=== PATIENT | female | born 1935 | race Caucasian/White ===

== ENCOUNTER 2016-10-12 18:08 | Emergency (ER) | payer MEDICARE ==
[2016-10-12 19:50] LABS: Urine Bacteria 1+ (Absent); Urine Bilirubin Negative (Negative); Urine Glucose Negative (Negative); Urine Nitrite Positive (Negative)
[2016-10-12 19:54] LABS: Hematocrit 37 % (35-47); Hemoglobin 12.1 g/dl (12.0-16.0); Mean Corpuscular HGB Conc 33 g/dl (31-36); Mean Corpuscular Hemoglobin 31 pg (27-31); Mean Corpuscular Volume 93 fL (80-97); Mean Platelet Volume 9 um3 (7.4-10.4); Red Blood Count 3.91 10^6/ul (4.0-5.4); Red Cell Distribution Width 14 % (10.5-15); White Blood Count 9.9 10^3/ul (3.5-10.8)
[2016-10-12 20:09] LABS: ALT 20 U/L (7-52); Albumin 3.8 g/dL (3.2-5.2); Alkaline Phosphatase 93 U/L (34-104); BUN/Creatinine Ratio 27.6 (8-20); Blood Urea Nitrogen 27 mg/dL (6-24); CO2 Carbon Dioxide 25 mmol/L (22-32); Calcium 9.9 mg/dL (8.6-10.3); Chloride 104 mmol/L (101-111); EGFR African American 70.4 (>60); EGFR Non-African American 54.7 (>60); Globulin 3.9 g/dL (2-4); Glucose 91 mg/dL (70-100); Sodium 137 mmol/L (133-145); Total Protein 7.7 g/dL (6.4-8.9)
[2016-10-12] MEDS ORDERED: Iodixanol* (CONTRAST) 320 MG/ML 100 ML SDV IV ONE (20:15)
--- NOTE | 2016-10-12 20:55 | RAD ---
INDICATION: Syncope. COMPARISON: Comparison is made with a prior CT of the brain from April 30, 2013. TECHNIQUE: Contiguous axial sections of the brain were obtained from the skull base to the vertex without contrast. FINDINGS: The ventricles, cisterns and sulci are enlarged consistent with diffuse atrophy. There are small areas of decreased density in the subcortical and periventricular white matter suggestive of mild chronic small vessel ischemic changes. There is no evidence for hemorrhage. No significant focal osseous abnormality is seen. The visualized portion of the paranasal sinuses and mastoid air cells appear clear. IMPRESSION: NO EVIDENCE FOR GROSS ACUTE INFARCT, MASS EFFECT OR HEMORRHAGE.
--- NOTE | 2016-10-12 21:08 | ED ---
Adonis Conte Matthew, scribed for Brennan White MD on 10/12/16 at 1928 . Syncope/Near Syncope - HPI Summary HPI Summary: A 81 y/o female presents to the ED after syncopating this afternoon. The patient was in [employer], when she reached up for an item then felt a pain in the back of her neck and became dizzy. The patient attempt to find a bench, but had an episode of near syncope. She refused the ambulance at that time, because she was feeling better. She had missed her usual lunch, so she went home and had lunch; however, she began to feel weak and unsteady, which prompted her to present to the ED. Associated symptoms include LOC, dizziness, weakness, and unsteadiness. Per the daughter, the patient seems slower to respond than normal and she has been experiencing tingling/numbness around the lips. She denies any injures. She has also had an episode of syncope in 2012, while walking up a long flight of stairs. She also has a Hx of TIA. She takes a baby aspirin daily. - History Of Current Complaint Chief Complaint: EDSyncope Hx Obtained From: Patient Onset/Duration: Sudden Onset, Lasting Minutes, Resolved Timing: Minutes Context: Witnessed, Loss Of Consciousness Activity At Onset: Other - Standing Associated Head Trauma: No Aggravating Factor(s): Other - Reaching Up Alleviating Factor(s): Spontaneous Resolution Associated Signs And Symptoms: Dizzy, Weakness, Other - unsteady - Allergies/Home Medications Allergies/Adverse Reactions: Allergies Allergy/AdvReac Type Severity Reaction Status Date / Time NSAIDs Allergy Severe See Comment Verified 04/30/13 17:27 PMH/Surg Hx/FS Hx/Imm Hx Cardiovascular History: Reports: Hx Hypercholesterolemia - HLD, Hx Hypotension - TEENAGER, Hx Hypertension History: Reports: Other Problems/Disorders - MILD RENAL INSUFF, UTI'S Musculoskeletal History: Reports: Hx Arthritis, Other Musculoskeletal History - WEARS RIGHT LEG BRACE Sensory History: Reports: Hx Cataracts, Hx Contacts or Glasses, Hx Vision Problem - DETACHED RETINA Opthamlomology History: Reports: Hx Cataracts, Hx Contacts or Glasses, Hx Vision Problem - DETACHED RETINA Neurological History: Reports: Other Neuro Impairments/Disorders - SYNCOPAL EPISODES - Cancer History Hx Chemotherapy: No Hx Radiation Therapy: No - Surgical History Surgery Procedure, Year, and Place: CATARACT SURGERY. LID LIFT. CYSTS REMOVED BY EYE LIDS Hx Anesthesia Reactions: No Infectious Disease History: No Infectious Disease History: Denies: Traveled Outside the [place] in Last 30 Days - Family History Family History: FHx of breast CA - sister and daughter - Social History Alcohol Use: None Substance Use Type: Reports: None Smoking Status (MU): Never Smoked Tobacco Review of Systems Constitutional: Negative Eyes: Negative ENT: Negative Cardiovascular: Negative Respiratory: Negative Gastrointestinal: Negative Genitourinary: Negative Musculoskeletal: Negative Skin: Negative Neurological: Other - LOC; unsteady; slow to respond Positive: Weakness - general, Numbness - and tingling around the lips, Syncope Psychological: Normal All Other Systems Reviewed And Are Negative: Yes Physical Exam Triage Information Reviewed: Yes Vital Signs On Initial Exam: Initial Vitals Temp Pulse Resp BP Pulse Ox 96.8 F 81 17 162/104 99 10/12/16 18:34 10/12/16 18:34 10/12/16 18:34 10/12/16 18:34 10/12/16 18:34 Vital Signs Reviewed: Yes Appearance: Positive: Well-Appearing, No Pain Distress Skin: Positive: Warm Head/Face: Positive: Normal Head/Face Inspection Eyes: Positive: EOMI, JAJA ENT: Positive: Hearing grossly normal Neck: Positive: Supple, Nontender, Other: - no bruits noted Respiratory/Lung Sounds: Positive: Clear to Auscultation, Breath Sounds Present Cardiovascular: Positive: RRR Abdomen Description: Positive: Nontender, Soft Bowel Sounds: Positive: Present Neurological: Positive: Sensory/Motor Intact, Alert, Oriented to Person Place, Time, CN Intact II-III, Normal Gait Psychiatric: Positive: Affect/Mood Appropriate - Steve Coma Scale Coma Scale Total: 15 Diagnostics - Vital Signs Vital Signs Temp Pulse Resp BP Pulse Ox 10/12/16 18:42 96.8 F 77 17 162/104 100 10/12/16 18:34 96.8 F 81 17 162/104 99 - Laboratory Lab Results: Lab Results 10/12/16 10/12/16 10/12/16 Range/Units 19:35 19:44 19:44 WBC 9.9 (3.5-10.8) 10^3/ul RBC 3.91 L (4.0-5.4) 10^6/ul Hgb 12.1 (12.0-16.0) g/dl Hct 37 (35-47) % MCV 93 (80-97) fL MCH 31 (27-31) pg MCHC 33 (31-36) g/dl RDW 14 (10.5-15) % Plt Count 232 (150-450) 10^3/ul MPV 9 (7.4-10.4) um3 Neut % (Auto) 64.3 (38-83) % Lymph % (Auto) 22.0 L (25-47) % Van Zandt % (Auto) 10.6 H (1-9) % Eos % (Auto) 2.3 (0-6) % Baso % (Auto) 0.8 (0-2) % Absolute Neuts (auto) 6.3 (1.5-7.7) 10^3/ul Absolute Lymphs (auto) 2.2 (1.0-4.8) 10^3/ul Absolute Monos (auto) 1.0 H (0-0.8) 10^3/ul Absolute Eos (auto) 0.2 (0-0.6) 10^3/ul Absolute Basos (auto) 0.1 (0-0.2) 10^3/ul Absolute Nucleated RBC 0.02 10^3/ul Nucleated RBC % 0.2 Sodium 137 (133-145) mmol/L Potassium TNP Chloride 104 (101-111) mmol/L Carbon Dioxide 25 (22-32) mmol/L Anion Gap TNP BUN 27 H (6-24) mg/dL Creatinine 0.98 H (0.51-0.95) mg/dL Est GFR ( Amer) 70.4 (>60) Est GFR (Non-Af Amer) 54.7 (>60) BUN/Creatinine Ratio 27.6 H (8-20) Glucose 91 (70-100) mg/dL Lactic Acid (0.5-2.0) mmol/L Calcium 9.9 (8.6-10.3) mg/dL Magnesium TNP Total Bilirubin 0.40 (0.2-1.0) mg/dL AST TNP ALT 20 (7-52) U/L Alkaline Phosphatase 93 (34-104) U/L Troponin I 0.00 (<0.04) ng/mL Total Protein 7.7 (6.4-8.9) g/dL Albumin 3.8 (3.2-5.2) g/dL Globulin 3.9 (2-4) g/dL Albumin/Globulin Ratio 1.0 (1-3) Urine Color Straw Urine Appearance Clear Urine pH 6.0 (5-9) Ur Specific Nemo 1.003 L (1.010-1.030) Urine Protein Negative (Negative) Urine Ketones Negative (Negative) Urine Blood Negative (Negative) Urine Nitrate Positive H (Negative) Urine Bilirubin Negative (Negative) Urine Urobilinogen Negative (Negative) Ur Leukocyte Esterase Trace H (Negative) Urine WBC (Auto) Trace(0-5/hpf) (Absent) Urine RBC (Auto) Absent (Absent) Ur Squamous Epith Cells Present H (Absent) Urine Bacteria 1+ H (Absent) Urine Glucose Negative (Negative) 10/12/16 Range/Units 19:44 WBC (3.5-10.8) 10^3/ul RBC (4.0-5.4) 10^6/ul Hgb (12.0-16.0) g/dl Hct (35-47) % MCV (80-97) fL MCH (27-31) pg MCHC (31-36) g/dl RDW (10.5-15) % Plt Count (150-450) 10^3/ul MPV (7.4-10.4) um3 Neut % (Auto) (38-83) % Lymph % (Auto) (25-47) % Van Zandt % (Auto) (1-9) % Eos % (Auto) (0-6) % Baso % (Auto) (0-2) % Absolute Neuts (auto) (1.5-7.7) 10^3/ul Absolute Lymphs (auto) (1.0-4.8) 10^3/ul Absolute Monos (auto) (0-0.8) 10^3/ul Absolute Eos (auto) (0-0.6) 10^3/ul Absolute Basos (auto) (0-0.2) 10^3/ul Absolute Nucleated RBC 10^3/ul Nucleated RBC % Sodium (133-145) mmol/L Potassium Chloride (101-111) mmol/L Carbon Dioxide (22-32) mmol/L Anion Gap BUN (6-24) mg/dL Creatinine (0.51-0.95) mg/dL Est GFR ( Amer) (>60) Est GFR (Non-Af Amer) (>60) BUN/Creatinine Ratio (8-20) Glucose (70-100) mg/dL Lactic Acid < 0.3 L (0.5-2.0) mmol/L Calcium (8.6-10.3) mg/dL Magnesium Total Bilirubin (0.2-1.0) mg/dL AST ALT (7-52) U/L Alkaline Phosphatase (34-104) U/L Troponin I (<0.04) ng/mL Total Protein (6.4-8.9) g/dL Albumin (3.2-5.2) g/dL Globulin (2-4) g/dL Albumin/Globulin Ratio (1-3) Urine Color Urine Appearance Urine pH (5-9) Ur Specific Nemo (1.010-1.030) Urine Protein (Negative) Urine Ketones (Negative) Urine Blood (Negative) Urine Nitrate (Negative) Urine Bilirubin (Negative) Urine Urobilinogen (Negative) Ur Leukocyte Esterase (Negative) Urine WBC (Auto) (Absent) Urine RBC (Auto) (Absent) Ur Squamous Epith Cells (Absent) Urine Bacteria (Absent) Urine Glucose (Negative) Result Diagrams: 10/12/16 19:44 10/12/16 21:09 Lab Statement: Any lab studies that have been ordered have been reviewed, and results considered in the medical decision making process. - CT Head CTA CT Interpretation: No Acute Changes - IMPRESSION: 1. NO EVIDENCE FOR CAROTID STENOSIS. 2. NO EVIDENCE FOR INTRACRANIAL LARGE VESSEL THROMBUS. CT Interpretation Completed By: Radiologist Brain CT CT Interpretation: No Acute Changes - IMPRESSION: NO EVIDENCE FOR GROSS ACUTE INFARCT, MASS EFFECT OR HEMORRHAGE. CT Interpretation Completed By: Radiologist - EKG 19:00 Cardiac Rate: NL - 67 bpm EKG Rhythm: Sinus Rhythm EKG Interpretation: No STEMI Course/Dx Assessment/Plan: A 81 y/o female presents to the ED after syncopating this afternoon. The patient was in [employer], when she reached up for an item then felt a pain in the back of her neck and became dizzy. The patient attempt to find a bench, but had an episode of syncope. She refused the ambulance at that time, because she was feeling better. She had missed her usual lunch, so she went home and had lunch; however, she began to feel weak and unsteady, which prompted her to present to the ED. Associated symptoms include LOC, dizziness, weakness, and unsteadiness. Per the daughter, the patient seems slower to respond than normal and she has been experiencing tingling/numbness around the lips. Labs were reviewed. Head CTA shows 1. no evidence for carotid stenosis. 2. no evidence for intracranial large vessel thrombus. Brain CT shows no evidence for gross acute infarct, mass effect or hemorrhage. EKG shows sinus rhythm. The patient did well in the ED. She will be discharged home with PCP and neurology follow-up. - Diagnoses Provider Diagnoses: Near syncope Discharge - Discharge Plan Condition: Stable Disposition: HOME Patient Education Materials: Syncope (ED) Referrals: Earnestine Curry MD [Primary Care Provider] - 2 Days Brennan Prasad MD [Medical Doctor] - 4 Days Additional Instructions: Please follow-up with your primary care physician and Dr. Prasad. The documentation as recorded by the Adonis david Matthew accurately reflects the service I personally performed and the decisions made by me, Brennan White MD.
--- NOTE | 2016-10-12 21:12 | RAD ---
INDICATION: Syncope. COMPARISON: Comparison is made with a prior CT of the brain of the same date. TECHNIQUE: A CT angiogram of the head and neck was performed following intravenous injection of 80 ml of Visipaque 320 nonionic contrast. Contiguous axial sections were obtained from the thoracic inlet through the skull vertex. Images were reconstructed in the coronal and sagittal planes and in a 3-D volume rendered format. The distal cervical internal carotid artery diameter is used as the denominator for stenosis measurement. FINDINGS: RIGHT CAROTID: The common and internal carotid arteries appear patent without evidence for stenosis or dissection. LEFT CAROTID: The common and internal carotid arteries appear patent without evidence for stenosis or dissection. VERTEBRALS: The vertebral arteries appear patent. CTA BRAIN: The internal carotid, anterior and middle cerebral arteries appear patent without evidence for high-grade stenosis or occlusion. The vertebral, basilar and posterior cerebral arteries appear patent without evidence for high-grade stenosis or occlusion. No gross focal perfusion abnormalities are seen. No aneurysm or vascular malformation is seen. NECK: No significant enlarged lymph nodes are seen within the neck. The thyroid, parotid and submandibular glands appear to be within normal limits. The lung apices appear clear. The sinuses are clear. IMPRESSION: 1. NO EVIDENCE FOR CAROTID STENOSIS. 2. NO EVIDENCE FOR INTRACRANIAL LARGE VESSEL THROMBUS. CPT II Codes: 3100F
[2016-10-12 21:35] LABS: Magnesium 1.7 mg/dL (1.9-2.7)
[2016-10-12 21:50] VITALS: BP 109/67
== END 2016-10-12 21:48 | disposition home or self-care (01) ==
LOC: ED 18:08
DX: R55 Syncope and collapse (principal); R42 Dizziness and giddiness; R53.1 Weakness
CPT/HCPCS: 36415; 70450; 70496; 70498; 80053; 81003; 81015; 83605; 83735; 84484; 85025; 87077; 87086; 87186; 93005; 99283; Q9967

== ENCOUNTER 2016-12-22 15:40 | Emergency (ER) | payer MEDICARE ==
--- NOTE | 2016-12-22 17:42 | UC ---
Complaint Female HPI - HPI Summary HPI Summary: 4 DAYS OF URINARY FREQUENCY AND URGENCY AND BURNING. HAS HAD SOME INTERMITTENT DIZZINESS ND DECREASED APPETITE. NO FEVER, NAUSEA OR BACK PAIN. REPORTS SHE HAS FAINTED SEVERAL TIMES IN THE PAST FEW MONTHS BUT THIS HAS BEEN EVALUATED BY HER PCP. - History Of Current Complaint Chief Complaint: UCDizziness Stated Complaint: DIZZY Time Seen by Provider: 12/22/16 17:02 Hx Obtained From: Patient Onset/Duration: Gradual Onset, Lasting Days, Still Present Timing: Constant Severity Initially: Moderate Severity Currently: Moderate Pain Intensity: 0 Pain Scale Used: 0-10 Numeric Character: Burning Aggravating Factor(s): Urination Alleviating Factor(s): Nothing Associated Signs And Symptoms: Positive: Negative - Allergies/Home Medications Allergies/Adverse Reactions: Allergies Allergy/AdvReac Type Severity Reaction Status Date / Time NSAIDs Allergy Severe See Comment Verified 12/22/16 15:53 PMH/Surg Hx/FS Hx/Imm Hx Cardiovascular History: Hypertension - Surgical History Surgical History: Yes Surgery Procedure, Year, and Place: CATARACT SURGERY. LID LIFT. CYSTS REMOVED BY EYE LIDS - Family History Family History: FHx of breast CA - sister and daughter - Social History Alcohol Use: None Substance Use Type: None Smoking Status (MU): Never Smoked Tobacco - Immunization History Most Recent Influenza Vaccination: 2012 Most Recent Tetanus Shot: < 10 YEARS Most Recent Pneumonia Vaccination: 2002 Review of Systems Constitutional: Negative ENT: Negative Respiratory: Negative Cardiovascular: Negative Gastrointestinal: Negative Genitourinary: Dysuria, Frequency, Urgency All Other Systems Reviewed And Are Negative: Yes Physical Exam Triage Information Reviewed: Yes Appearance: Well-Appearing, No Pain Distress, Well-Nourished Vital Signs: Initial Vital Signs Temp 98.1 F 12/22/16 15:44 Pulse 74 12/22/16 15:44 Resp 18 12/22/16 15:44 BP 184/84 12/22/16 15:44 Pulse Ox 97 12/22/16 15:44 Vital Signs Reviewed: Yes Eyes: Positive: Conjunctiva Clear ENT: Positive: Hearing grossly normal Neck: Positive: Supple Respiratory: Positive: No respiratory distress, No accessory muscle use Cardiovascular: Positive: Pulses Normal Abdomen Description: Positive: Nontender, Soft. Negative: CVA Tenderness (R), CVA Tenderness (L) Bowel Sounds: Positive: Present Musculoskeletal: Positive: Edema @ - 1+ NON PITTING Neurological: Positive: Alert Psychological: Positive: Age Appropriate Behavior Skin: Negative: rashes Diagnostics - Laboratory Diagnostic Studies Completed/Ordered: URINE DIP SP. GR. 1.005, 1+ LEUKS, POS NITRITES Complaint Female Dx - Differential Dx/Diagnosis Provider Diagnoses: UTI Discharge - Discharge Plan Condition: Stable Disposition: HOME Prescriptions: Sulfamethox/Trimethoprim DS* [Bactrim DS 800/160 TAB*] 1 tab PO BID #10 tab Patient Education Materials: Urinary Tract Infection in Women (ED) Referrals: Earnestine Curry MD [Primary Care Provider] - If Needed
[2016-12-22 17:43] VITALS: BP 148/70
== END 2016-12-22 17:43 | disposition home or self-care (01) ==
LOC: UCEAST 15:40
DX: N39.0 Urinary tract infection, site not specified (principal)
CPT/HCPCS: 81003; 87077; 87086; 87186; 93005; 99212; G0463

== ENCOUNTER 2018-08-14 11:43 | Emergency (ER) | payer MEDICARE ==
--- OUTSIDE RECORDS SUMMARY | 2018-08-14 12:11 | XMS REPORT | Continuity of Care Document ---
:1935 External Reference #:[id number] Author Name John Alarcon M.D. Address [address] [place] [address] Care Team Providers Name Role Phone MD Starr, Gomez Care Team Information Zigzag Stitcher Unavailable Earnestine Curry MD Primary Care Physician Unavailable Payers Date Identification Numbers Payment Provider Subscriber Effective: 2013 Policy Number: [id number] [employer] [place] Arielle Rodriguez PayID: [id number] [address] [place] [address] Effective: 2013 Policy Number: [facility] Arielle Rodriguez [id number] Options PayID: [id number] [address] [place] [address] Advance Directives Description No Information Available Problems Date Description Provider Status Onset: 08/27/2016 Presbyopia John Alarcon M.D. 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 Active Onset: 08/13/2015 Other chorioretinal scars, right eye John Alarcon M.D. Active Onset: 08/13/2015 Superficial punctate keratitis John Alarcon M.D. Active Onset: 05/12/2015 Primary open-angle glaucoma, mild stage John Alarcon M.D. 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 Active Onset: 11/04/2014 Tear film insufficiency John Alarcon M.D. Active Onset: 11/04/2014 Epiretinal membrane John Alarcon M.D. Active Onset: 02/01/2014 Chalazion John Alarcon M.D. Active Onset: 07/26/2013 Vitreous degeneration John Alarcon M.D. Active Onset: 07/26/2013 Status Post Surgery John Alarcon M.D. Active Onset: 07/26/2013 Lens Replaced By Other Means John Alarcon M.D. Active Onset: 07/26/2013 Open-angle glaucoma John Alarcon M.D. Active Family History Date Family Member(s) Observation Comments General cancer-sister Father cancer, heart disease, dm, cva Father due to Cancer () Mother cancer, htn, heart disease Mother due to Cancer () Social History Type Date Description Comments Sex Unknown ETOH Use Rarely consumes alcohol Tobacco Use Start: Unknown Patient has never smoked Smoking Status Reviewed: 08/03/18 Patient has never smoked Allergies, Adverse Reactions, Alerts Date Description Reaction Status Severity Comments 10/16/2013 NSAIDs Active Medications Medication Date Status Form Strength Qnty SIG Indications Ordering Provider Latanoprost Active Solution 0.005% 7.5ml instill 1 John 016 drop into [facility] eye M.D. every night Losartan Active Unknown Potassium 000 Pravastatin Active Tablets Unknown Sodium 000 Oxybutynin Active Unknown Chloride 000 Ranitidine Active Unknown [address] 81mg Unknown 000 Loratadine Active Unknown 000 Latanoprost Hx Solution 0.005% 2.5uni Instill 1 John 016 - ts Drop Into [facility], Each Eye M.D. 018 Every Night Zioptan Hx Solution 0.0015% 30unit 1 drops H43.813 John 016 - s both eyes [facility], every M.D. 016 evening Latanoprost Hx Solution 0.005% 2.5uni Instill 1 John 015 - ts Drop Into [facility], Each Eye M.D. 016 Every Night Latanoprost Hx Solution 0.005% 9ml 1 drops John 014 - both eyes [facility], every M.D. 014 night Salsalate 0 Hx Unknown 000 - 018 Systane 0 Hx 1 drops Unknown 000 - both eyes twice a 018 day Immunizations Description No Information Available Vital Signs Date Vital Result Comment 07/27/2018 3:41pm Intraocular Pressure Right Eye 13 mmHg Intraocular Pressure Left Eye 14 mmHg 04/20/2018 10:34am Intraocular Pressure Right Eye 15 mmHg Intraocular Pressure Left Eye 14 mmHg 01/06/2018 3:42pm Intraocular Pressure Right Eye 15 mmHg Intraocular Pressure Left Eye 15 mmHg 09/29/2017 1:41pm Intraocular Pressure Right Eye 15 mmHg Intraocular Pressure Left Eye 15 mmHg 07/28/2017 2:10pm Intraocular Pressure Right Eye 14 mmHg Intraocular Pressure Left Eye 14 mmHg 04/18/2017 1:53pm Intraocular Pressure Right Eye 14 mmHg Intraocular Pressure Left Eye 14 mmHg 12/09/2016 3:12pm Intraocular Pressure Right Eye 15 mmHg Intraocular Pressure Left Eye 14 mmHg 08/27/2016 3:00pm Intraocular Pressure Right Eye 17 mmHg Intraocular Pressure Left Eye 16 mmHg 05/21/2016 2:25pm Intraocular Pressure Right Eye 14 mmHg Intraocular Pressure Left Eye 13 mmHg 02/19/2016 1:47pm Intraocular Pressure Right Eye 15 mmHg Intraocular Pressure Left Eye 14 mmHg 09/04/2015 2:36pm Intraocular Pressure Right Eye 16 mmHg Intraocular Pressure Left Eye 15 mmHg 08/13/2015 2:16pm Intraocular Pressure Right Eye 12 mmHg Intraocular Pressure Left Eye 13 mmHg 05/12/2015 1:54pm Intraocular Pressure Right Eye 12 mmHg Intraocular Pressure Left Eye 12 mmHg 02/07/2015 2:13pm Intraocular Pressure Right Eye 11 mmHg Intraocular Pressure Left Eye 12 mmHg 11/04/2014 2:25pm Intraocular Pressure Right Eye 12 mmHg Intraocular Pressure Left Eye 13 mmHg 08/08/2014 1:57pm Intraocular Pressure Right Eye 12 mmHg Intraocular Pressure Left Eye 14 mmHg 05/07/2014 2:04pm Intraocular Pressure Right Eye 15 mmHg Intraocular Pressure Left Eye 16 mmHg 02/01/2014 2:58pm Intraocular Pressure Right Eye 16 mmHg Intraocular Pressure Left Eye 16 mmHg 11/01/2013 3:22pm Intraocular Pressure Right Eye 16 mmHg Intraocular Pressure Left Eye 16 mmHg 07/26/2013 3:46pm Intraocular Pressure Right Eye 16 mmHg Intraocular Pressure Left Eye 16 mmHg Results Description No Information Available Procedures Date Code Description Status 08/03/2018 75750 Ophthalmoscopy Subsequent Completed 08/03/2018 91447 Eye Exam Est Intermediate Completed 04/20/2018 18460 Oct, Optic Nerve Completed 04/20/2018 23762 Eye Exam Est Intermediate Completed 01/06/2018 10223 Oct Retina Completed 01/06/2018 08957 Visual Field Exam Extended, Unilateral Or Bilateral Completed 01/06/2018 88184 Eye Exam Est Intermediate Completed 09/29/2017 71305 Fundus Photography W/Interpretation & Report Completed 09/29/2017 85528 Ophthalmoscopy Subsequent Completed 09/29/2017 02507 Eye Exam Est Intermediate Completed 07/28/2017 82508 Eye Exam Est Intermediate Completed 04/18/2017 55423 Eye Exam Est Intermediate Completed 04/18/2017 31798 Oct, Optic Nerve Completed 12/09/2016 01137 Visual Field Exam Extended, Unilateral Or Bilateral Completed 12/09/2016 85640 Eye Exam Est Intermediate Completed 08/27/2016 84438 Fundus Photography W/Interpretation & Report Completed 08/27/2016 58549 Ophthalmoscopy Subsequent Completed 08/27/2016 80937 Refraction Completed 08/27/2016 21389 Eye Exam Est Intermediate Completed 05/21/2016 85577 Eye Exam Est Intermediate Completed 02/19/2016 10633 Oct, Optic Nerve Completed 02/19/2016 20916 Eye Exam Est Intermediate Completed 11/18/2015 73871 Visual Field Exam Extended, Unilateral Or Bilateral Completed 11/18/2015 50888 Visual Field Exam Extended, Unilateral Or Bilateral Completed 09/19/2015 04088 Excision Chalazion Single Completed 09/04/2015 16207 Eye Exam Est Intermediate Completed 08/13/2015 35963 Fundus Photography W/Interpretation & Report Completed 08/13/2015 32407 Eye Exam Est Comprehensive Completed 05/12/2015 66993 Eye Exam Est Intermediate Completed 02/07/2015 37445 Oct, Optic Nerve Completed 02/07/2015 54996 Eye Exam Est Intermediate Completed 11/04/2014 00917 Oct Retina Completed 11/04/2014 78098 Eye Exam Est Intermediate Completed 08/08/2014 65937 Eye Exam Est Comprehensive Completed 08/08/2014 44214 Ophthalmoscopy Subsequent Completed 08/08/2014 44825 Fundus Photography W/Interpretation & Report Completed 05/07/2014 39536 Eye Exam Est Intermediate Completed 02/01/2014 21706 Oct, Optic Nerve Completed 02/01/2014 54200 Eye Exam Est Intermediate Completed 11/01/2013 64163 Visual Field Exam Extended, Unilateral Or Bilateral Completed 11/01/2013 29038 Eye Exam Est Intermediate Completed 07/26/2013 30996 Fundus Photography W/Interpretation & Report Completed 07/26/2013 12561 Ophthalmoscopy Subsequent Completed 07/26/2013 85734 Eye Exam Est Comprehensive Completed Encounters Type Date Location Provider Dx Diagnosis Office Visit 07/27/2018 Main Office John Alarcon, H40.1131 Primary open- angle 3:30p M.D. glaucoma, bilateral, mild stage H43.813 Vitreous degeneration, bilateral Plan of Treatment 08/03/2018 - John Alarcon M.D.H43.813 Vitreous degeneration, zjkpbvrggX05.1131 Primary open-angle glaucoma, bilateral, mild fydfxE80.373 Puckering of macula, [id number] Chorioretinal scars after surgery for detachment, bilateralFollow up:full 2 mos
--- OUTSIDE RECORDS SUMMARY | 2018-08-14 12:11 | XMS REPORT | Continuity of Care Document ---
:1935 External Reference #:[id number] Author Name John Alarcon M.D. Address [address] [place] [address] Care Team Providers Name Role Phone MD Starr, Gomez Care Team Information [employer] Assistant Manager Unavailable Earnestine Curry MD Primary Care Physician Unavailable Payers Date Identification Numbers Payment Provider Subscriber Effective: 2013 Policy Number: [id number] [place] Arielle Rodriguez PayID: [id number] [address] [place] [address] Effective: 2013 Policy Number: [facility] Arielle Rodriguez [id number] Options PayID: [id number] [address] [place] [address] Advance Directives Description No Information Available Problems [...] Patient has never smoked Smoking Status Reviewed: 07/27/18 Patient has never smoked Allergies, Adverse Reactions, Alerts Date Description Reaction Status Severity Comments 10/16/2013 NSAIDs Active Medications Medication Date Status Form Strength Qnty SIG Indications Ordering Provider Latanoprost Active Solution 0.005% 7.5ml instill 1 John 016 drop into [facility], each eye M.D. every night Losartan Active Unknown Potassium 000 Pravastatin Active Tablets Unknown Sodium 000 Oxybutynin Active Unknown Chloride 000 Ranitidine Active Unknown [address] 81mg Unknown 000 Loratadine Active Unknown 000 Latanoprost Hx Solution 0.005% 2.5uni Instill 1 John 016 - ts Drop Into [facility], Each Eye M.D. 018 Every Night Zioptan Hx Solution 0.0015% 30unit 1 drops H43.813 John 016 - s both eyes [facility], every M.D. 016 evening Latanoprost Hx Solution 0.005% 2.5uni Instill 1 John 015 - ts Drop Into [facility], Each Eye M.D. 016 Every Night Latanoprost Hx Solution 0.005% 9ml 1 drops John 014 - both eyes [facility], every M.D. 014 night Salsalate 0 Hx [...] Information Available Procedures Date Code Description Status 07/27/2018 51219 Eye Exam Est Intermediate Completed 04/20/2018 80020 Oct, Optic Nerve Completed 04/20/2018 78935 Eye Exam Est Intermediate Completed 01/06/2018 48559 Oct Retina Completed 01/06/2018 62667 Visual Field Exam Extended, Unilateral Or Bilateral Completed 01/06/2018 79421 Eye Exam Est Intermediate Completed 09/29/2017 16342 Fundus Photography W/Interpretation & Report Completed 09/29/2017 06190 Ophthalmoscopy Subsequent Completed 09/29/2017 98194 Eye Exam Est Intermediate Completed 07/28/2017 05365 Eye Exam Est Intermediate Completed 04/18/2017 86069 Eye Exam Est Intermediate Completed 04/18/2017 76191 Oct, Optic Nerve Completed 12/09/2016 40401 Visual Field Exam Extended, Unilateral Or Bilateral Completed 12/09/2016 77697 Eye Exam Est Intermediate Completed 08/27/2016 63877 Fundus Photography W/Interpretation & Report Completed 08/27/2016 25939 Ophthalmoscopy Subsequent Completed 08/27/2016 20889 Refraction Completed 08/27/2016 10388 Eye Exam Est Intermediate Completed 05/21/2016 83682 Eye Exam Est Intermediate Completed 02/19/2016 65069 Oct, Optic Nerve Completed 02/19/2016 10467 Eye Exam Est Intermediate Completed 11/18/2015 00208 Visual Field Exam Extended, Unilateral Or Bilateral Completed 11/18/2015 87555 Visual Field Exam Extended, Unilateral Or Bilateral Completed 09/19/2015 16220 Excision Chalazion Single Completed 09/04/2015 58854 Eye Exam Est Intermediate Completed 08/13/2015 20941 Fundus Photography W/Interpretation & Report Completed 08/13/2015 56728 Eye Exam Est Comprehensive Completed 05/12/2015 84477 Eye Exam Est Intermediate Completed 02/07/2015 75607 Oct, Optic Nerve Completed 02/07/2015 75901 Eye Exam Est Intermediate Completed 11/04/2014 09227 Oct Retina Completed 11/04/2014 96898 Eye Exam Est Intermediate Completed 08/08/2014 59773 Eye Exam Est Comprehensive Completed 08/08/2014 85820 Ophthalmoscopy Subsequent Completed 08/08/2014 08346 Fundus Photography W/Interpretation & Report Completed 05/07/2014 11066 Eye Exam Est Intermediate Completed 02/01/2014 83331 Oct, Optic Nerve Completed 02/01/2014 94447 Eye Exam Est Intermediate Completed 11/01/2013 91432 Visual Field Exam Extended, Unilateral Or Bilateral Completed 11/01/2013 08919 Eye Exam Est Intermediate Completed 07/26/2013 98102 Fundus Photography W/Interpretation & Report Completed 07/26/2013 38231 Ophthalmoscopy Subsequent Completed 07/26/2013 45867 Eye Exam Est Comprehensive Completed Encounters Description No Information Available Plan of Treatment 07/27/2018 - John Alarcon M.D.[id number] Primary open-angle glaucoma, bilateral , mild [id number] Vitreous degeneration, bilateralFollow up:DFE 1 wk
--- NOTE | 2018-08-14 12:23 | UC ---
Complaint Female HPI - HPI Summary HPI Summary: 83 yo female presents with urinary frequency and foul smell to urine for the last 3-4 days. Yesterday she admits to feeling "foggy" and "confused", but says this is common when she gets UTIs. She also admits to getting frequent UTIs. She is eating and drinking well. Denies fever, chills, abdominal pain, n/v, or flank pain. - History Of Current Complaint Chief Complaint: UCGU Stated Complaint: POSS UTI Time Seen by Provider: 08/14/18 12:22 Hx Obtained From: Patient Onset/Duration: Gradual Onset Severity Initially: Mild Severity Currently: Mild Pain Intensity: 2 Pain Scale Used: 0-10 Numeric - Allergies/Home Medications Allergies/Adverse Reactions: Allergies Allergy/AdvReac Type Severity Reaction Status Date / Time meloxicam AdvReac See Comment Verified 08/14/18 13:09 Home Medications: Home Medications Ascorbic Acid TAB* [Vitamin C TAB*] 500 mg PO DAILY 08/14/18 [History Confirmed 08/14/18] PMH/Surg Hx/FS Hx/Imm Hx - Additional Past Medical History Additional PMH: OVeractive bladder Endocrine History: Dyslipidemia Cardiovascular History: Hypertension - Surgical History Surgical History: Yes Surgery Procedure, Year, and Place: CATARACT SURGERY. LID LIFT. CYSTS REMOVED BY EYE LIDS - Family History Family History: FHx of breast CA - sister and daughter - Social History Occupation: Retired Alcohol Use: Rare Substance Use Type: None Smoking Status (MU): Never Smoked Tobacco - Immunization History Most Recent Influenza Vaccination: 2012 Most Recent Tetanus Shot: < 10 YEARS Most Recent Pneumonia Vaccination: 2002 Review of Systems All Other Systems Reviewed And Are Negative: Yes Constitutional: Positive: Negative Skin: Positive: Negative Respiratory: Positive: Negative Cardiovascular: Positive: Negative Gastrointestinal: Positive: Negative Genitourinary: Positive: Dysuria, Frequency Neurovascular: Positive: Negative Neurological: Positive: Negative Psychological: Positive: Negative Physical Exam - Summary Physical Exam Summary: GENERAL: NAD. WDWN. No pain distress. SKIN: No rashes, sores, lesions, or open wounds. NECK: Supple. Nontender. No lymphadenopathy. CHEST: CTAB. No r/r/w. No accessory muscle use. Breathing comfortably and in no distress. CV: RRR. Without m/r/g. Pulses intact. Cap refill <2seconds ABDOMEN: Soft. NTTP. No distention or guarding. No CVA tenderness. Bowel sounds present NEURO: Alert. PSYCH: Age appropriate behavior. Triage Information Reviewed: Yes Vital Signs: Initial Vital Signs Temp 97 F 08/14/18 12:16 Pulse 74 08/14/18 12:16 Resp 16 08/14/18 12:16 BP 183/91 08/14/18 12:16 Pulse Ox 99 08/14/18 12:16 Laboratory Tests 08/14/18 13:27 POC Urine Color Yellow POC Urine Clarity Clear POC Urine pH 6.0 POC Ur Specif [place] <= 1.005 L POC Urine Protein Negative POC Ur Glucose (UA) Negative POC Urine Ketones Negative POC Urine Blood Trace-intact A POC Urine Nitrite Negative POC Urine Bilirubin Negative POC Urine Urobilinogen 0.2 POC U Leukocyte Esteras 2+ A Vital Signs Reviewed: Yes Re-Evaluation - Re-Evaluation First Eval Comment: At onset of dizziness complaint: NEURO: A&Ox3. 3 word recall, remote, recent memory, ability to follow 2-step directions,. and attention intact. CN: II: Peripheral parrish intact. Vision normal. III, IV, : EOMI. No nystagmus. PERRLA. V: Sensations intact and symmetric. Opens mouth and clenches teeth. VII : No facial asymmetry. Forehead wrinkles. Grins, shuts eyes, frowns, puffs cheeks. VIII: Hearing intact to finger rub. IX, X: Swallows and coughs. Uvula midline. XI: Shrugs shoulders. Turns head against resistance. XII: No tongue deviation [id number] are intact. Gait with normal base. Romberg: maintains balance, no pronator drift. Normal speech. No facial drooping. Complaint Female Dx - Course Course Of Treatment: While waiting for pt to produce a urine sample, she came out of the exam room and complained that she felt dizzy. No headache, chest pain , palpitations, vision changes, or weakness. Exam as above. An EKG was performed showing NSR at 69bpm without ST changes as read by Dr. Goode. Pt was given water and juice and said she felt better. Dizziness resolved. She did eat prior to coming to (POC BG was 99). UA with leuks. Will treat her for UTI. Advised to go to ED if her dizziness returns. Pt and pt's daughter with her today voice understanding. - Differential Dx/Diagnosis Provider Diagnosis: UTI (urinary tract infection), Dizziness Discharge - Sign-Out/Discharge Documenting (check all that apply): Patient Departure All imaging exams completed and their final reports reviewed: No Studies - Discharge Plan Condition: Stable Disposition: HOME Prescriptions: Cephalexin CAP* [Keflex CAP*] 500 mg PO BID #14 cap Patient Education Materials: Urinary Tract Infection in Women (DC) Referrals: Earnestine Curry MD [Primary Care Provider] - Additional Instructions: If you develop a fever, shortness of breath, chest pain, new or worsening symptoms - please call your PCP or go to the ED. Your blood pressure was high at todays visit. Please see your primary provider within 4 weeks for recheck and re-evaluation. - Billing Disposition and Condition Condition: STABLE Disposition: Home
[2018-08-14 13:07] VITALS: BP 150/90
--- NOTE | 2018-08-16 16:56 | UC ---
- Progress Note Progress Note: 08/16/2018 Urine culture: No growth Please call back patient and notify her of results., Advised to stop taking Keflex PO. thank you Amelia Chavez PA-C Re-Evaluation - Re-Evaluation First Eval Comment: At onset of dizziness complaint: NEURO: A&Ox3. 3 word recall, remote, recent memory, ability to follow 2-step directions,. and attention intact. CN: II: Peripheral parrish intact. Vision normal. III, IV, : EOMI. No nystagmus. PERRLA. V: Sensations intact and symmetric. Opens mouth and clenches teeth. VII : No facial asymmetry. Forehead wrinkles. Grins, shuts eyes, frowns, puffs cheeks. VIII: Hearing intact to finger rub. IX, X: Swallows and coughs. Uvula midline. XI: Shrugs shoulders. Turns head against resistance. XII: No tongue deviation [id number] are intact. Gait with normal base. Romberg: maintains balance, no pronator drift. Normal speech. No facial drooping. Course/Dx - Diagnoses Provider Diagnoses: UTI (urinary tract infection), Dizziness Discharge - Sign-Out/Discharge Documenting (check all that apply): Patient Departure - D/C home All imaging exams completed and their final reports reviewed: No Studies - Discharge Plan Condition: Stable Disposition: HOME Prescriptions: Cephalexin CAP* [Keflex CAP*] 500 mg PO BID #14 cap Patient Education Materials: Urinary Tract Infection in Women (DC) Referrals: Earnestine Curry MD [Primary Care Provider] - Additional Instructions: If you develop a fever, shortness of breath, chest pain, new or worsening symptoms - please call your PCP or go to the ED. Your blood pressure was high at todays visit. Please see your primary provider within 4 weeks for recheck and re-evaluation. - Billing Disposition and Condition Condition: STABLE Disposition: Home - Attestation Statements Provider Attestation: I was available for consult. This patient was seen by the [facility]. The patient was not presented to, seen by, or examined by me. -Ana Maria
== END 2018-08-14 13:46 | disposition home or self-care (01) ==
LOC: UCEAST 11:43
DX: N39.0 Urinary tract infection, site not specified (principal); R42 Dizziness and giddiness; I10 Essential (primary) hypertension; Z88.8 Allergy status to other drugs, medicaments and biological substances
CPT/HCPCS: 81003; 87086; 99211; G0463

== ENCOUNTER 2020-04-03 13:55 | Observation (INO) ==
[2020-04-03 15:23] LABS: ABS Eosinophils 0.3 10^3/ul (0-0.6); ABS Lymphocytes 2.7 10^3/ul (1.0-4.8); ABS Monocytes 0.7 10^3/ul (0-0.8); ABS Neutrophils 2.4 10^3/ul (1.5-7.7); Eosinophil % 4.8 %; Hematocrit 34 % (35-47); Hemoglobin 11.7 g/dL (12.0-16.0); Lymphocyte % 44.3 %; Mean Corpuscular HGB Conc 34 g/dL (31-36); Mean Corpuscular Hemoglobin 33 pg (27-31); Mean Corpuscular Volume 96 fL (80-97); Mean Platelet Volume 8.2 fL (7.4-10.4); Platelet Count 263 10^3/uL (150-450); Red Blood Count 3.57 10^6 /uL (3.70-4.87); Red Cell Distribution Width 14 % (10-15)
[2020-04-03 15:34] LABS: Activated Partial Thrombo Time 34.3 seconds (26.0-38.0); INR 0.93 (0.82-1.09)
[2020-04-03 15:54] LABS: ALT 25 U/L (7-52); AST 22 U/L (13-39); Albumin/Globulin Ratio 1.3 (1-3); Alkaline Phosphatase 83 U/L (34-104); Anion Gap 10 mmol/L (2-11); BUN/Creatinine Ratio 29.6 (8-20); Blood Urea Nitrogen 24 mg/dL (6-24); C Reactive Protein 2.72 mg/L (<8.01); CO2 Carbon Dioxide 23 mmol/L (22-32); Calcium 9.9 mg/dL (8.6-10.3); Chloride 109 mmol/L (101-111); Creatine Kinase 30 U/L (10-223); EGFR African American 81.7 (>60); EGFR Non-African American 67.5 (>60); Globulin 3.1 g/dL (2-4); Glucose 94 mg/dL (70-100); Magnesium 1.8 mg/dL (1.9-2.7); Potassium 3.9 mmol/L (3.5-5.0); Sodium 142 mmol/L (135-145); Total Protein 7.1 g/dL (6.4-8.9)
[2020-04-03 16:13] LABS: Alcohol, S < 10 mg/dL (<10)
[2020-04-03 16:19] LABS: TSH Ultra Thyroid Stim Horm 1.38 mcIU/mL (0.34-5.60)
[2020-04-03 18:21] LABS: Urine Appearance Clear; Urine Color Yellow
[2020-04-03 18:22] LABS: Urine Ketones Negative (Negative); Urine Specific Gravity 1.004 (1.010-1.030)
[2020-04-03 18:23] LABS: Urine Protein Negative (Negative); Urine Urobilinogen Negative (Negative)
[2020-04-03 18:24] LABS: Urine Blood 1+ (Negative)
[2020-04-03 18:25] LABS: Urine Bilirubin Negative (Negative); Urine Glucose Negative (Negative); Urine Nitrite Negative (Negative)
[2020-04-03 18:37] LABS: Urine White Blood Cell 1+(6-10/hpf) (Absent)
[2020-04-03 18:38] LABS: Urine Bacteria Absent (Absent); Urine Red Blood Cell 1+(3-5/hpf) (Absent)
[2020-04-03 18:39] LABS: Urine Squamous Epithelial Cell Present (Absent)
[2020-04-03] MEDS ORDERED: hydrALAZINE 20 mg/ml 1 ML Vial IV IV SLOW PU ONE (19:07)
[2020-04-03] MEDS ORDERED: Labetalol IV 5 MG/ML 20 ml VIAL IV PRN (21:19)
[2020-04-03] MEDS ORDERED: Magnesium Sulfate 2 gm BAG 2 GM/50 ML BAG IVPB ONE (21:27)
[2020-04-03] MEDS ORDERED: NS 0.9% 500 ml BAG 500 ML IV ONE (21:28)
[2020-04-03] MEDS ORDERED: Enoxaparin 40 MG/0.4 ML SYR SUBCUT SCH (22:00)
[2020-04-03 22:38] LABS: Lipase 44 U/L (11.0-82.0)
[2020-04-03 22:39] LABS: % Iron Saturation 31 % (15-55); Iron 110 ug/dL (50-212); Total Iron Binding Capacity 350 mcg/dL (250-450); Transferrin 250 mg/dL (203-362); Unsaturated Iron Binding < 335 ug/dL
[2020-04-03 23:01] LABS: Ferritin 75.4 ng/mL (11-307)
[2020-04-03 23:05] LABS: Folate > 20.00 ng/mL (>3.99)
[2020-04-03 23:06] LABS: Vitamin B12 > 1450 pg/mL (180-914)
[2020-04-04] MEDS ORDERED: Calcium/Vitamin D TAB 250/125 TAB PO SCH (09:00)
[2020-04-04] MEDS ORDERED: Aspirin EC 81 mg TAB.EC (enteric coated) PO SCH (09:00)
[2020-04-04] MEDS ORDERED: Fluticasone NASAL SPRAY 50MCG 16 gm SPRAY BTL INTRANASAL SCH (09:00)
[2020-04-04 11:44] VITALS: BP 134/59
[2020-04-08 18:35] LABS: SS-A/Ro Antibody <0.2 U; SS-B/La Antibody <0.2 U
== END 2020-04-04 14:00 | disposition home or self-care (01) ==
LOC: MEDTELE 13:55 → ED 13:55 → MEDTELE 22:06
PROVIDERS: ADMIT Internal Medicine; ATTEND Internal Medicine

== ENCOUNTER 2021-05-27 12:47 | Inpatient (IN) ==
[2021-05-27] MEDS ORDERED: NS 0.9% 1000 ml BAG 1,000 ML IV ONE (12:50)
[2021-05-27] MEDS ORDERED: Iodixanol (CONTRAST) 320 MG/ML 100 ML SDV IV ONE (13:02)
[2021-05-27] MEDS ORDERED: hydrALAZINE 20 mg/ml 1 ML Vial IV IV SLOW PU ONE (13:14)
[2021-05-27 13:29] LABS: ABS Eosinophils 0.2 10^3/ul (0-0.6); ABS Lymphocytes 1.8 10^3/ul (1.0-4.8); ABS Monocytes 0.5 10^3/ul (0-0.8); ABS Neutrophils 3.4 10^3/ul (1.5-7.7); Eosinophil % 3.7 %; Hematocrit 31 % (35-47); Hemoglobin 10.6 g/dL (12.0-16.0); Mean Corpuscular HGB Conc 34 g/dL (31-36); Mean Corpuscular Hemoglobin 32 pg (27-31); Mean Corpuscular Volume 94 fL (80-97); Mean Platelet Volume 7.9 fL (7.4-10.4); Platelet Count 211 10^3/uL (150-450); Red Blood Count 3.33 10^6 /uL (3.70-4.87); Red Cell Distribution Width 15 % (10-15); White Blood Count 5.9 10^3/uL (3.5-10.8)
[2021-05-27 13:35] LABS: Activated Partial Thrombo Time 41.5 seconds (26.0-38.0); INR 0.96 (0.86-1.15)
[2021-05-27 13:53] LABS: Albumin 3.7 g/dL (3.2-5.2); Albumin/Globulin Ratio 1.3 (1-3); Globulin 2.8 g/dL (2-4); HDL Cholesterol 100.2 mg/dL; Potassium 4.4 mmol/L (3.5-5.0); Total Bilirubin 0.3 mg/dL (0.2-1.0); Total Protein 6.5 g/dL (6.4-8.9); eGFR CKD-EPI 50.1 (>60)
[2021-05-27 14:20] LABS: C Reactive Protein 9.2 mg/L (<8.01)
[2021-05-27 15:16] LABS: Urine Appearance Cloudy; Urine Bilirubin Negative (Negative); Urine Blood Negative (Negative); Urine Color Yellow; Urine Glucose Negative (Negative); Urine Ketones Negative (Negative); Urine Nitrite Negative (Negative); Urine Protein Negative (Negative); Urine Specific Gravity 1.011 (1.002-1.030); Urine Urobilinogen Negative (Negative)
[2021-05-27 15:18] LABS: Urine Bacteria 1+ (Absent); Urine Red Blood Cell Trace(0-2/hpf) (Absent); Urine Squamous Epithelial Cell Present (Absent); Urine White Blood Cell 1+(6-10/hpf) (Absent)
[2021-05-27 15:23] LABS: TSH Ultra Thyroid Stim Horm 1.88 mcIU/mL (0.34-5.60)
[2021-05-27 16:46] LABS: Rapid COVID-19 Molecular Undetected (Undetected)
[2021-05-27 16:58] LABS: Erythrocyte Sed Rate 45 mm/Hr (0-29)
[2021-05-27] MEDS ORDERED: Enoxaparin 30 MG/0.3 ML SYR SUBCUT SCH (17:00)
[2021-05-27] MEDS: cefTRIAXone 1 gm/50 mL NS BAG 1 GM/50 ML BAG IVPB SCH (17:54)
[2021-05-27 18:02] LABS: Lipase 57 U/L (11.0-82.0); Magnesium 1.6 mg/dL (1.9-2.7)
[2021-05-27 18:09] LABS: Acetaminophen < 15 mcg/mL
[2021-05-27] MEDS ORDERED: Magnesium Sulfate 2 gm BAG 2 GM/50 ML BAG IVPB ONE (18:55)
[2021-05-27] MEDS: Latanoprost 0.005% 2.5 ml BTL BOTH EYES SCH (23:33)
[2021-05-28] MEDS ORDERED: Cosyntropin 0.25 MG VIAL IV ONE (06:00)
[2021-05-28 06:24] LABS: Hematocrit 30 % (35-47); Hemoglobin 10.2 g/dL (12.0-16.0); Mean Corpuscular HGB Conc 34 g/dL (31-36); Mean Corpuscular Hemoglobin 32 pg (27-31); Mean Corpuscular Volume 95 fL (80-97); Mean Platelet Volume 8.1 fL (7.4-10.4); Platelet Count 212 10^3/uL (150-450); Red Blood Count 3.16 10^6 /uL (3.70-4.87); Red Cell Distribution Width 16 % (10-15); White Blood Count 5.8 10^3/uL (3.5-10.8)
[2021-05-28 06:32] LABS: Calcium 9.3 mg/dL (8.6-10.3); Magnesium 2.1 mg/dL (1.9-2.7); Phosphorus 2.9 mg/dL (2.5-5.0); Potassium 4.6 mmol/L (3.5-5.0)
[2021-05-28] MEDS ORDERED: Aspirin EC 81 mg TAB.EC (enteric coated) PO SCH (09:00)
[2021-05-28] MEDS ORDERED: Labetalol IV 5 MG/ML 20 ml VIAL IV PUSH PRN (09:05)
[2021-05-28] MEDS: cefTRIAXone 1 gm/50 mL NS BAG 1 GM/50 ML BAG IVPB SCH (18:36)
[2021-05-28] MEDS: Latanoprost 0.005% 2.5 ml BTL BOTH EYES SCH (20:02)
[2021-05-28] MEDS ORDERED: Enoxaparin 40 MG/0.4 ML SYR SUBCUT SCH (21:00)
[2021-05-29 06:01] LABS: ABS Eosinophils 0.2 10^3/ul (0-0.6); ABS Lymphocytes 1.9 10^3/ul (1.0-4.8); ABS Monocytes 0.6 10^3/ul (0-0.8); ABS Neutrophils 2.3 10^3/ul (1.5-7.7); Eosinophil % 3.7 %; Hematocrit 27 % (35-47); Hemoglobin 9.1 g/dL (12.0-16.0); Mean Corpuscular HGB Conc 34 g/dL (31-36); Mean Corpuscular Hemoglobin 32 pg (27-31); Mean Corpuscular Volume 95 fL (80-97); Mean Platelet Volume 8.6 fL (7.4-10.4); Nucleated Red Blood Cells % 0.1; Platelet Count 209 10^3/uL (150-450); Red Blood Count 2.83 10^6 /uL (3.70-4.87); Red Cell Distribution Width 15 % (10-15)
[2021-05-29 06:21] LABS: Calcium 9.2 mg/dL (8.6-10.3); Potassium 4.2 mmol/L (3.5-5.0); eGFR CKD-EPI 62.2 (>60)
[2021-05-29] MEDS: cefTRIAXone 1 gm/50 mL NS BAG 1 GM/50 ML BAG IVPB SCH (17:49)
[2021-05-29] MEDS: Latanoprost 0.005% 2.5 ml BTL BOTH EYES SCH (20:38)
[2021-05-30 06:27] LABS: ABS Eosinophils 0.2 10^3/ul (0-0.6); ABS Lymphocytes 2.1 10^3/ul (1.0-4.8); ABS Monocytes 0.6 10^3/ul (0-0.8); ABS Neutrophils 2.3 10^3/ul (1.5-7.7); Eosinophil % 4.6 %; Hematocrit 28 % (35-47); Hemoglobin 9.4 g/dL (12.0-16.0); Lymphocyte % 40.2 %; Mean Corpuscular HGB Conc 34 g/dL (31-36); Mean Corpuscular Hemoglobin 32 pg (27-31); Mean Corpuscular Volume 95 fL (80-97); Mean Platelet Volume 8.3 fL (7.4-10.4); Nucleated Red Blood Cells % 0.1; Platelet Count 221 10^3/uL (150-450); Red Blood Count 2.94 10^6 /uL (3.70-4.87); Red Cell Distribution Width 15 % (10-15); White Blood Count 5.3 10^3/uL (3.5-10.8)
[2021-05-30 06:45] LABS: Calcium 9.2 mg/dL (8.6-10.3); Potassium 4.2 mmol/L (3.5-5.0); eGFR CKD-EPI 69.5 (>60)
[2021-05-30] MEDS: cefTRIAXone 1 gm/50 mL NS BAG 1 GM/50 ML BAG IVPB SCH (17:29)
[2021-05-30] MEDS: Latanoprost 0.005% 2.5 ml BTL BOTH EYES SCH (21:02)
[2021-05-31 06:06] LABS: ABS Eosinophils 0.3 10^3/ul (0-0.6); ABS Lymphocytes 2.3 10^3/ul (1.0-4.8); ABS Monocytes 0.6 10^3/ul (0-0.8); ABS Neutrophils 2.3 10^3/ul (1.5-7.7); Eosinophil % 5.7 %; Hematocrit 28 % (35-47); Hemoglobin 9.4 g/dL (12.0-16.0); Lymphocyte % 41.7 %; Mean Corpuscular HGB Conc 34 g/dL (31-36); Mean Corpuscular Hemoglobin 32 pg (27-31); Mean Corpuscular Volume 95 fL (80-97); Mean Platelet Volume 8.6 fL (7.4-10.4); Platelet Count 229 10^3/uL (150-450); Red Blood Count 2.93 10^6 /uL (3.70-4.87); Red Cell Distribution Width 15 % (10-15); White Blood Count 5.4 10^3/uL (3.5-10.8)
[2021-05-31 06:18] LABS: Calcium 9.2 mg/dL (8.6-10.3); eGFR CKD-EPI 68.5 (>60)
[2021-05-31] MEDS: cefTRIAXone 1 gm/50 mL NS BAG 1 GM/50 ML BAG IVPB SCH (17:33)
[2021-05-31] MEDS: LEVETIRACETAM 500 MG PO SCH (21:20)
[2021-05-31] MEDS: Latanoprost 0.005% 2.5 ml BTL BOTH EYES SCH (21:20)
[2021-06-01] MEDS ORDERED: Dextran 70/Hypromellose Tears Eye Drops 15 ml BTL (for Artificials Tears) BOTH EYES PRN (09:23)
[2021-06-01] MEDS ORDERED: Polyethylene Glycol 3350 17 GM PACKET PO PRN (09:23)
[2021-06-01] MEDS ORDERED: Senna TAB 8.6 mg TAB PO PRN (09:27)
[2021-06-01 13:19] LABS: % Iron Saturation 41 % (14 - 50); Total Iron Binding Capacity 228 mcg/dL (250 - 400); Transferrin 193 mg/dL (200 - 360)
[2021-06-01] MEDS: cefTRIAXone 1 gm/50 mL NS BAG 1 GM/50 ML BAG IVPB SCH (18:32)
[2021-06-01] MEDS: Latanoprost 0.005% 2.5 ml BTL BOTH EYES SCH (20:41)
[2021-06-01] MEDS: LEVETIRACETAM 500 MG PO SCH (20:41)
[2021-06-02 07:52] VITALS: BP 140/56
[2021-06-02 09:04] LABS: Rapid COVID-19 Molecular Undetected (Undetected)
== END 2021-06-02 11:00 | DRG 689 ==
LOC: ED 12:47 → SUATTDRO 16:01 → EDHOLD 16:01 → MEDTELE 18:50
PROVIDERS: ADMIT Internal Medicine; ATTEND Internal Medicine

== ENCOUNTER 2021-06-09 18:08 | Inpatient (IN) ==
[2021-06-09 19:14] LABS: ABS Eosinophils 0.2 10^3/ul (0-0.6); ABS Lymphocytes 1.5 10^3/ul (1.0-4.8); ABS Monocytes 0.3 10^3/ul (0-0.8); Eosinophil % 4.1 %; Hematocrit 31 % (35-47); Hemoglobin 10.7 g/dL (12.0-16.0); Lymphocyte % 29.9 %; Mean Corpuscular HGB Conc 34 g/dL (31-36); Mean Corpuscular Hemoglobin 33 pg (27-31); Mean Corpuscular Volume 95 fL (80-97); Mean Platelet Volume 8.4 fL (7.4-10.4); Platelet Count 265 10^3/uL (150-450); Red Blood Count 3.29 10^6 /uL (3.70-4.87); Red Cell Distribution Width 15 % (10-15)
[2021-06-09 19:31] LABS: ALT 35 U/L (7-52); AST 47 U/L (13-39); Albumin 3.6 g/dL (3.2-5.2); Albumin/Globulin Ratio 1.2 (1-3); Alkaline Phosphatase 90 U/L (35-149); Anion Gap 7 mmol/L (2-11); Blood Urea Nitrogen 29 mg/dL (6-24); CO2 Carbon Dioxide 25 mmol/L (22-32); Calcium 9.3 mg/dL (8.6-10.3); Chloride 109 mmol/L (101-111); Globulin 3.1 g/dL (2-4); Glucose 89 mg/dL (70-100); Potassium 4.2 mmol/L (3.5-5.0); Sodium 141 mmol/L (135-145); Total Protein 6.7 g/dL (6.4-8.9); eGFR CKD-EPI 65.7 (>60)
[2021-06-09 19:55] LABS: TSH Ultra Thyroid Stim Horm 4.81 mcIU/mL (0.34-5.60)
[2021-06-09 19:57] LABS: Free T4 0.87 ng/dL (0.61-1.12)
[2021-06-09 22:31] LABS: Urine Appearance Clear; Urine Bilirubin Negative (Negative); Urine Blood Negative (Negative); Urine Color Straw; Urine Glucose Negative (Negative); Urine Ketones Negative (Negative); Urine Nitrite Negative (Negative); Urine Protein Negative (Negative); Urine Specific Gravity 1.005 (1.002-1.030); Urine Urobilinogen Negative (Negative)
[2021-06-09] MEDS: Dextran 70/Hypromellose Tears Eye Drops 15 ml BTL (for Artificials Tears) BOTH EYES PRN (22:42)
[2021-06-09 23:03] LABS: C Reactive Protein 6.02 mg/L (<8.01)
[2021-06-10] MEDS ORDERED: Polyethylene Glycol 3350 17 GM PACKET PO PRN (01:29)
[2021-06-10] MEDS ORDERED: Senna TAB 8.6 mg TAB PO PRN (01:29)
[2021-06-10] MEDS ORDERED: Levetiracetam XR 500 MG TAB.XR PO ONE (01:31)
[2021-06-10] MEDS ORDERED: Enoxaparin 40 MG/0.4 ML SYR SUBCUT SCH (02:00)
[2021-06-10] MEDS ORDERED: Labetalol IV 5 MG/ML 20 ml VIAL IV PUSH ONE (03:26)
[2021-06-10 04:33] LABS: Folate > 20.00 ng/mL (5.90-24.80)
[2021-06-10 04:34] LABS: Vitamin B12 > 1450 pg/mL (180-914)
[2021-06-10 06:51] LABS: ABS Basophils 0.1 10^3/ul (0-0.2); ABS Eosinophils 0.2 10^3/ul (0-0.6); ABS Lymphocytes 1.6 10^3/ul (1.0-4.8); ABS Monocytes 0.3 10^3/ul (0-0.8); ABS Neutrophils 2.3 10^3/ul (1.5-7.7); Eosinophil % 5.6 %; Hematocrit 30 % (35-47); Hemoglobin 10.2 g/dL (12.0-16.0); Lymphocyte % 36.5 %; Mean Corpuscular HGB Conc 34 g/dL (31-36); Mean Corpuscular Hemoglobin 33 pg (27-31); Mean Corpuscular Volume 96 fL (80-97); Mean Platelet Volume 8.4 fL (7.4-10.4); Nucleated Red Blood Cells % 0.1; Platelet Count 261 10^3/uL (150-450); Red Blood Count 3.11 10^6 /uL (3.70-4.87); Red Cell Distribution Width 15 % (10-15); White Blood Count 4.5 10^3/uL (3.5-10.8)
[2021-06-10 07:17] LABS: Albumin 3.4 g/dL (3.2-5.2); Albumin/Globulin Ratio 1.2 (1-3); Calcium 9.3 mg/dL (8.6-10.3); Globulin 2.8 g/dL (2-4); Potassium 4.2 mmol/L (3.5-5.0); Total Bilirubin 0.3 mg/dL (0.2-1.0); Total Protein 6.2 g/dL (6.4-8.9); eGFR CKD-EPI 70.5 (>60)
[2021-06-10] MEDS: Multivitamins/Minerals TAB PO SCH (10:26)
[2021-06-10] MEDS: Fluticasone NASAL SPRAY 50MCG 16 gm SPRAY BTL INTRANASAL SCH (10:26)
[2021-06-10] MEDS: Latanoprost 0.005% 2.5 ml BTL BOTH EYES SCH ×2 (10:26→22:04)
[2021-06-10] MEDS ORDERED: Levetiracetam XR 500 MG TAB.XR PO SCH (21:00)
[2021-06-10] MEDS: Dextran 70/Hypromellose Tears Eye Drops 15 ml BTL (for Artificials Tears) BOTH EYES PRN (22:11)
[2021-06-11] MEDS: Multivitamins/Minerals TAB PO SCH (09:35)
[2021-06-11] MEDS: Carbidopa/Levodop 25/100 MG TAB PO SCH ×3 (09:37→19:50)
[2021-06-11] MEDS: Fluticasone NASAL SPRAY 50MCG 16 gm SPRAY BTL INTRANASAL SCH (09:48)
[2021-06-11] MEDS ORDERED: Latanoprost 0.005% 2.5 ml BTL BOTH EYES SCH (21:00)
[2021-06-12] MEDS: Carbidopa/Levodop 25/100 MG TAB PO SCH ×2 (08:32→14:25)
[2021-06-12] MEDS: Multivitamins/Minerals TAB PO SCH (08:33)
[2021-06-12] MEDS: Fluticasone NASAL SPRAY 50MCG 16 gm SPRAY BTL INTRANASAL SCH (10:28)
[2021-06-12 15:07] VITALS: BP 111/54
== END 2021-06-12 15:36 | DRG 948 ==
LOC: ED 18:08 → EDHOLD 18:08 → SUATTDRO 06-10 01:26 → MED 06-10 02:21
PROVIDERS: ADMIT Internal Medicine; ATTEND Hospitalist

== ENCOUNTER 2021-06-12 11:49 | Inpatient (IN) ==
[2021-06-12] MEDS ORDERED: Al Hydrox/Mg Hydrox/Simet LIQ 30 ML UDC PO PRN (12:14)
[2021-06-12] MEDS ORDERED: Senna TAB 8.6 mg TAB PO PRN (12:14)
[2021-06-12] MEDS: Carbidopa/Levodop 25/100 MG TAB PO SCH ×2 (15:40→21:43)
[2021-06-12] MEDS: Latanoprost 0.005% 2.5 ml BTL BOTH EYES SCH (22:40)
[2021-06-13 05:58] LABS: ABS Eosinophils 0.3 10^3/ul (0-0.6); ABS Lymphocytes 2.3 10^3/ul (1.0-4.8); ABS Monocytes 0.3 10^3/ul (0-0.8); ABS Neutrophils 1.7 10^3/ul (1.5-7.7); Hematocrit 31 % (35-47); Hemoglobin 10.2 g/dL (12.0-16.0); Lymphocyte % 49.1 %; Mean Corpuscular HGB Conc 33 g/dL (31-36); Mean Corpuscular Hemoglobin 32 pg (27-31); Mean Corpuscular Volume 96 fL (80-97); Mean Platelet Volume 8.6 fL (7.4-10.4); Platelet Count 244 10^3/uL (150-450); Red Blood Count 3.19 10^6 /uL (3.70-4.87); Red Cell Distribution Width 15 % (10-15); White Blood Count 4.6 10^3/uL (3.5-10.8)
[2021-06-13 06:13] LABS: Albumin 3.5 g/dL (3.2-5.2); Albumin/Globulin Ratio 1.3 (1-3); Calcium 9.7 mg/dL (8.6-10.3); Globulin 2.8 g/dL (2-4); Potassium 4.5 mmol/L (3.5-5.0); Total Bilirubin 0.3 mg/dL (0.2-1.0); Total Protein 6.3 g/dL (6.4-8.9); eGFR CKD-EPI 62.2 (>60)
[2021-06-13] MEDS: Multivitamins/Minerals TAB PO SCH (09:30)
[2021-06-13] MEDS: Carbidopa/Levodop 25/100 MG TAB PO SCH ×3 (09:32→20:32)
[2021-06-13] MEDS: Fluticasone NASAL SPRAY 50MCG 16 gm SPRAY BTL BOTH NARES SCH (10:39)
[2021-06-13] MEDS: Latanoprost 0.005% 2.5 ml BTL BOTH EYES SCH (20:32)
[2021-06-14] MEDS: Carbidopa/Levodop 25/100 MG TAB PO SCH ×3 (10:10→20:24)
[2021-06-14] MEDS: Multivitamins/Minerals TAB PO SCH (10:11)
[2021-06-14] MEDS: Fluticasone NASAL SPRAY 50MCG 16 gm SPRAY BTL BOTH NARES SCH (10:11)
[2021-06-14] MEDS: Latanoprost 0.005% 2.5 ml BTL BOTH EYES SCH (20:24)
[2021-06-14] MEDS: Psyllium PAK PO SCH (20:24)
[2021-06-15] MEDS: Carbidopa/Levodop 25/100 MG TAB PO SCH ×3 (09:16→20:11)
[2021-06-15] MEDS: Multivitamins/Minerals TAB PO SCH (09:17)
[2021-06-15] MEDS: Fluticasone NASAL SPRAY 50MCG 16 gm SPRAY BTL BOTH NARES SCH (09:17)
[2021-06-15] MEDS: Psyllium PAK PO SCH (20:12)
[2021-06-15] MEDS: Latanoprost 0.005% 2.5 ml BTL BOTH EYES SCH (20:14)
[2021-06-16] MEDS: Multivitamins/Minerals TAB PO SCH (09:08)
[2021-06-16] MEDS: Carbidopa/Levodop 25/100 MG TAB PO SCH ×3 (09:09→20:50)
[2021-06-16] MEDS: Fluticasone NASAL SPRAY 50MCG 16 gm SPRAY BTL BOTH NARES SCH (09:15)
[2021-06-16] MEDS: Polyethylene Glycol 3350 17 GM PACKET PO PRN ×2 (11:59→20:38)
[2021-06-16] MEDS: Psyllium PAK PO SCH (20:49)
[2021-06-16] MEDS: Latanoprost 0.005% 2.5 ml BTL BOTH EYES SCH (20:53)
[2021-06-17] MEDS: Dextran 70/Hypromellose Tears Eye Drops 15 ml BTL (for Artificials Tears) BOTH EYES PRN (06:02)
[2021-06-17] MEDS: Fluticasone NASAL SPRAY 50MCG 16 gm SPRAY BTL BOTH NARES SCH (08:49)
[2021-06-17] MEDS: Carbidopa/Levodop 25/100 MG TAB PO SCH ×3 (08:50→20:00)
[2021-06-17] MEDS: Multivitamins/Minerals TAB PO SCH (08:50)
[2021-06-17] MEDS: Latanoprost 0.005% 2.5 ml BTL BOTH EYES SCH (20:01)
[2021-06-17] MEDS: Psyllium PAK PO SCH (20:02)
[2021-06-18] MEDS: Carbidopa/Levodop 25/100 MG TAB PO SCH ×3 (08:42→20:10)
[2021-06-18] MEDS: Multivitamins/Minerals TAB PO SCH (08:43)
[2021-06-18] MEDS: Dextran 70/Hypromellose Tears Eye Drops 15 ml BTL (for Artificials Tears) BOTH EYES PRN (10:00)
[2021-06-18] MEDS: Fluticasone NASAL SPRAY 50MCG 16 gm SPRAY BTL BOTH NARES SCH (12:35)
[2021-06-18] MEDS: Psyllium PAK PO SCH (20:13)
[2021-06-18] MEDS: Latanoprost 0.005% 2.5 ml BTL BOTH EYES SCH (20:13)
[2021-06-19 06:17] VITALS: BP 118/68
[2021-06-19] MEDS: Carbidopa/Levodop 25/100 MG TAB PO SCH ×2 (08:57→14:02)
[2021-06-19] MEDS: Multivitamins/Minerals TAB PO SCH (08:57)
[2021-06-19] MEDS: Fluticasone NASAL SPRAY 50MCG 16 gm SPRAY BTL BOTH NARES SCH (09:05)
== END 2021-06-19 15:01 | disposition home or self-care (01) | DRG 57 ==
LOC: PMRU 15:44
PROVIDERS: ADMIT Physical Medicine & Rehabilitation; ATTEND Physical Medicine & Rehabilitation

== ENCOUNTER 2021-06-23 14:14 | Observation (INO) ==
[2021-06-23] MEDS ORDERED: NS 0.9% 1000 ml BAG 1,000 ML IV ONE (14:27)
[2021-06-23 15:02] LABS: ABS Eosinophils 0.1 10^3/ul (0-0.6); ABS Lymphocytes 1.3 10^3/ul (1.0-4.8); ABS Monocytes 0.3 10^3/ul (0-0.8); ABS Neutrophils 2.9 10^3/ul (1.5-7.7); Eosinophil % 1.7 %; Hematocrit 33 % (35-47); Hemoglobin 11.1 g/dL (12.0-16.0); Lymphocyte % 28.1 %; Mean Corpuscular HGB Conc 34 g/dL (31-36); Mean Corpuscular Hemoglobin 32 pg (27-31); Mean Corpuscular Volume 95 fL (80-97); Mean Platelet Volume 8.2 fL (7.4-10.4); Nucleated Red Blood Cells % 0.2; Platelet Count 258 10^3/uL (150-450); Red Blood Count 3.47 10^6 /uL (3.70-4.87); Red Cell Distribution Width 15 % (10-15); White Blood Count 4.7 10^3/uL (3.5-10.8)
[2021-06-23 15:16] LABS: Activated Partial Thrombo Time 41.5 seconds (26.0-38.0); INR 0.93 (0.86-1.15)
[2021-06-23 15:21] LABS: Troponin I 0.01 ng/mL (<0.03)
[2021-06-23 16:36] LABS: Albumin 4.2 g/dL (3.2-5.2); Albumin/Globulin Ratio 1.3 (1-3); Calcium 10.3 mg/dL (8.6-10.3); Globulin 3.3 g/dL (2-4); HDL Cholesterol 104.1 mg/dL; Potassium 4.1 mmol/L (3.5-5.0); Total Bilirubin 0.3 mg/dL (0.2-1.0); Total Protein 7.5 g/dL (6.4-8.9); eGFR CKD-EPI 54.2 (>60)
[2021-06-23 18:32] LABS: Urine Appearance Clear; Urine Bilirubin Negative (Negative); Urine Blood Negative (Negative); Urine Color Yellow; Urine Glucose Negative (Negative); Urine Ketones Trace (Negative); Urine Nitrite Negative (Negative); Urine Protein Negative (Negative); Urine Specific Gravity 1.003 (1.002-1.030); Urine Urobilinogen Negative (Negative)
[2021-06-23] MEDS ORDERED: Enoxaparin 40 MG/0.4 ML SYR SUBCUT SCH (20:00)
[2021-06-23] MEDS ORDERED: Carbidopa/Levodop 25/100 MG TAB PO SCH (21:00)
[2021-06-24 08:14] LABS: Hematocrit 28 % (35-47); Hemoglobin 9.7 g/dL (12.0-16.0); Mean Corpuscular HGB Conc 34 g/dL (31-36); Mean Corpuscular Hemoglobin 33 pg (27-31); Mean Corpuscular Volume 96 fL (80-97); Mean Platelet Volume 8.3 fL (7.4-10.4); Platelet Count 217 10^3/uL (150-450); Red Blood Count 2.94 10^6 /uL (3.70-4.87); Red Cell Distribution Width 16 % (10-15); White Blood Count 4.2 10^3/uL (3.5-10.8)
[2021-06-24 08:22] LABS: ABS Eosinophils 0.2 10^3/ul (0-0.6); ABS Lymphocytes 1.5 10^3/ul (1.0-4.8); ABS Monocytes 0.4 10^3/ul (0-0.8); ABS Neutrophils 2.1 10^3/ul (1.5-7.7); Eosinophil % 4.4 %; Lymphocyte % 36.3 %; Nucleated Red Blood Cells % 0.1
[2021-06-24 08:28] LABS: Calcium 9.3 mg/dL (8.6-10.3); Potassium 4.3 mmol/L (3.5-5.0); eGFR CKD-EPI 69.5 (>60)
[2021-06-24 09:47] LABS: Free T4 0.79 ng/dL (0.61-1.12)
[2021-06-24] MEDS ORDERED: Gadoteridol (CONTRAST) 279.3 MG/ML 10 ML IV ONE (10:06)
[2021-06-24 12:38] LABS: Free T3 2.3 pg/mL (2.5-3.9)
[2021-06-24 12:50] LABS: Insulin 2.5 mcIU/mL (2.0-16.0)
[2021-06-24 17:17] VITALS: BP 131/61
== END 2021-06-24 17:15 | disposition home or self-care (01) ==
LOC: ED 14:14 → EDHOLD 14:14 → SUATTDRO 19:19 → MEDTELE 22:09
PROVIDERS: ADMIT Internal Medicine; ATTEND Hospitalist

== ENCOUNTER 2021-09-10 20:23 | Observation (INO) ==
[2021-09-10] MEDS ORDERED: Iodixanol (CONTRAST) 320 MG/ML 100 ML SDV IV ONE (20:36)
[2021-09-10 20:44] LABS: ABS Eosinophils 0.1 10^3/ul (0-0.6); ABS Lymphocytes 1.5 10^3/ul (1.0-4.8); ABS Monocytes 0.4 10^3/ul (0-0.8); ABS Neutrophils 3.4 10^3/ul (1.5-7.7); Eosinophil % 1.6 %; Hematocrit 33 % (35-47); Hemoglobin 11.1 g/dL (12.0-16.0); Lymphocyte % 27.9 %; Mean Corpuscular HGB Conc 34 g/dL (31-36); Mean Corpuscular Hemoglobin 33 pg (27-31); Mean Corpuscular Volume 98 fL (80-97); Mean Platelet Volume 8.7 fL (7.4-10.4); Nucleated Red Blood Cells % 0.1; Platelet Count 212 10^3/uL (150-450); Red Blood Count 3.35 10^6 /uL (3.70-4.87); Red Cell Distribution Width 17 % (10-15); White Blood Count 5.4 10^3/uL (3.5-10.8)
[2021-09-10 20:53] LABS: Activated Partial Thrombo Time 48.8 seconds (26.0-38.0); INR 0.94 (0.86-1.15)
[2021-09-10 21:02] LABS: ALT 28 U/L (7-52); Albumin/Globulin Ratio 1.4 (1-3); Alkaline Phosphatase 98 U/L (35-149); Blood Urea Nitrogen 22 mg/dL (6-24); CO2 Carbon Dioxide 21 mmol/L (22-32); Calcium 9.9 mg/dL (8.6-10.3); Chloride 106 mmol/L (101-111); Cholesterol 255 mg/dL; Globulin 2.8 g/dL (2-4); Glucose 79 mg/dL (70-100); HDL Cholesterol 119.2 mg/dL; LDL Cholesterol 119 mg/dL; Sodium 135 mmol/L (135-145); Total Protein 6.8 g/dL (6.4-8.9); Triglycerides 82 mg/dL; eGFR CKD-EPI 65.7 (>60)
[2021-09-10 21:07] LABS: High Sens Troponin Baseline 7 pg/mL (<15)
[2021-09-10 21:41] LABS: Anion Gap 8 mmol/L (2-11)
[2021-09-10 21:53] LABS: Potassium Redraw 4.6 mmol/L (3.5-5.0)
[2021-09-10 22:02] LABS: High Sensitivity Troponin 1 Hr 8 pg/mL (<15)
[2021-09-11 01:33] LABS: Urine Appearance Clear; Urine Bilirubin Negative (Negative); Urine Blood Negative (Negative); Urine Color Straw; Urine Glucose Negative (Negative); Urine Ketones Negative (Negative); Urine Nitrite Negative (Negative); Urine Protein Negative (Negative); Urine Specific Gravity 1.014 (1.002-1.030); Urine Urobilinogen Negative (Negative)
[2021-09-11 06:11] LABS: ABS Eosinophils 0.1 10^3/ul (0-0.6); ABS Lymphocytes 0.9 10^3/ul (1.0-4.8); ABS Monocytes 0.5 10^3/ul (0-0.8); Eosinophil % 1.5 %; Hematocrit 33 % (35-47); Hemoglobin 11.2 g/dL (12.0-16.0); Lymphocyte % 16.3 %; Mean Corpuscular HGB Conc 34 g/dL (31-36); Mean Corpuscular Hemoglobin 33 pg (27-31); Mean Corpuscular Volume 98 fL (80-97); Mean Platelet Volume 8.1 fL (7.4-10.4); Platelet Count 197 10^3/uL (150-450); Red Blood Count 3.34 10^6 /uL (3.70-4.87); Red Cell Distribution Width 16 % (10-15); White Blood Count 5.5 10^3/uL (3.5-10.8)
[2021-09-11 06:17] LABS: INR 0.93 (0.86-1.15)
[2021-09-11 06:45] LABS: Calcium 10.1 mg/dL (8.6-10.3); eGFR CKD-EPI 70.5 (>60)
[2021-09-11] MEDS ORDERED: Morphine 4 MG/ML VIAL (1 ml) IV ONE (07:00)
[2021-09-11] MEDS ORDERED: Vitamin THERAPEUTIC TAB PO SCH (09:00)
[2021-09-11] MEDS: Carbidopa/Levodop 25/100 MG TAB PO SCH ×2 (09:35→16:13)
[2021-09-11 11:21] VITALS: BP 143/64
[2021-09-11] MEDS ORDERED: Latanoprost 0.005% 2.5 ml BTL BOTH EYES SCH (21:00)
== END 2021-09-11 18:17 | disposition home or self-care (01) | DRG 78 ==
LOC: ED 20:23 → EDHOLD 09-11 00:50 → SUATTDRO 09-11 00:50 → INTOOBSV 09-11 00:50 → MEDTELE 09-11 04:07
PROVIDERS: ADMIT Internal Medicine; ATTEND Internal Medicine

== ENCOUNTER 2022-05-27 09:18 | Inpatient (IN) ==
[2022-05-27 11:29] LABS: ALT 28 U/L (7-52); Albumin 3.9 g/dL (3.2-5.2); Albumin/Globulin Ratio 1.2 (1-3); Alkaline Phosphatase 140 U/L (35-149); Blood Urea Nitrogen 23 mg/dL (6-24); C Reactive Protein 21.81 mg/L (<8.01); CO2 Carbon Dioxide 27 mmol/L (22-32); Calcium 9.8 mg/dL (8.6-10.3); Chloride 111 mmol/L (101-111); Globulin 3.2 g/dL (2-4); Glucose 78 mg/dL (70-100); Sodium 143 mmol/L (135-145); Total Protein 7.1 g/dL (6.4-8.9); eGFR CKD-EPI 50.9 (>60)
[2022-05-27 11:35] LABS: Anion Gap 5 mmol/L (2-11)
[2022-05-27 11:41] LABS: ABS Eosinophils 0.1 10^3/ul (0-0.6); ABS Lymphocytes 0.7 10^3/ul (1.0-4.8); ABS Monocytes 0.4 10^3/ul (0-0.8); ABS Neutrophils 5.5 10^3/ul (1.5-7.7); Eosinophil % 0.9 %; Hematocrit 31 % (35-47); Hemoglobin 9.8 g/dL (12.0-16.0); Lymphocyte % 10.4 %; Mean Corpuscular HGB Conc 32 g/dL (31-36); Mean Corpuscular Hemoglobin 30 pg (27-31); Mean Corpuscular Volume 94 fL (80-97); Mean Platelet Volume 8.2 fL (7.4-10.4); Nucleated Red Blood Cells % 0.1; Platelet Count 184 10^3/uL (150-450); Red Blood Count 3.24 10^6 /uL (3.70-4.87); Red Cell Distribution Width 17 % (10-15); White Blood Count 6.6 10^3/uL (3.5-10.8)
[2022-05-27 12:02] LABS: Urine Appearance Clear; Urine Bilirubin Negative (Negative); Urine Blood Negative (Negative); Urine Color Yellow; Urine Glucose Negative (Negative); Urine Ketones Negative (Negative); Urine Nitrite Negative (Negative); Urine Protein Negative (Negative); Urine Urobilinogen Negative (Negative)
[2022-05-27] MEDS ORDERED: Lactated Ringers 1000 ml BAG 1,000 ML IV ONE (12:05)
[2022-05-27] MEDS ORDERED: Piperacillin/Tazobac ADVAN 3.375 GM in NS 0.9% 100 ml BAG 100 ML IV ONE (12:06)
[2022-05-27 12:14] LABS: Urine Bacteria Absent (Absent); Urine Red Blood Cell Trace(0-2/hpf) (Absent); Urine White Blood Cell 2+(11-20/hpf) (Absent)
[2022-05-27 14:15] LABS: Potassium Redraw 4.8 mmol/L (3.5-5.0)
[2022-05-27] MEDS ORDERED: Acetaminophen IV 1 GM/100ML 1,000 MG/100 ML BAG IV ONE (15:26)
[2022-05-27 16:50] LABS: Creatine Kinase 76 U/L (10-223)
[2022-05-27] MEDS ORDERED: Enoxaparin 40 MG/0.4 ML SYR SUBCUT SCH (20:00)
[2022-05-27] MEDS: cefTRIAXone 1 gm/50 mL D5W 1 GM/50 ML BAG IV SCH (22:03)
[2022-05-27] MEDS: Enoxaparin 30 MG/0.3 ML SYR SUBCUT SCH (22:04)
[2022-05-28 05:57] LABS: ABS Eosinophils 0.1 10^3/ul (0-0.6); ABS Lymphocytes 1.1 10^3/ul (1.0-4.8); ABS Monocytes 0.4 10^3/ul (0-0.8); ABS Neutrophils 3.5 10^3/ul (1.5-7.7); Eosinophil % 2.3 %; Hematocrit 30 % (35-47); Lymphocyte % 20.8 %; Mean Corpuscular HGB Conc 34 g/dL (31-36); Mean Corpuscular Hemoglobin 32 pg (27-31); Mean Corpuscular Volume 95 fL (80-97); Mean Platelet Volume 8.3 fL (7.4-10.4); Nucleated Red Blood Cells % 0.1; Platelet Count 169 10^3/uL (150-450); Red Blood Count 3.15 10^6 /uL (3.70-4.87); Red Cell Distribution Width 17 % (10-15); White Blood Count 5.1 10^3/uL (3.5-10.8)
[2022-05-28 06:13] LABS: Calcium 9.6 mg/dL (8.6-10.3); Potassium 4.6 mmol/L (3.5-5.0); eGFR CKD-EPI 42.6 (>60)
[2022-05-28] MEDS ORDERED: Dextrose 50% VIAL 50 ml IV PRN (06:23)
[2022-05-28] MEDS ORDERED: D5W 1000 ml BAG 1,000 ML IV SCH (09:00)
[2022-05-28 12:52] LABS: Calcium 9.3 mg/dL (8.6-10.3); Potassium 4.1 mmol/L (3.5-5.0)
[2022-05-28 12:57] LABS: eGFR CKD-EPI 45.3 (>60)
[2022-05-28] MEDS: D5W 1000 ml BAG 1,000 ML IV SCH (15:57)
[2022-05-28 18:19] LABS: Calcium 9.2 mg/dL (8.6-10.3); Potassium 3.9 mmol/L (3.5-5.0); eGFR CKD-EPI 45.7 (>60)
[2022-05-28] MEDS: cefTRIAXone 1 gm/50 mL D5W 1 GM/50 ML BAG IV SCH (19:40)
[2022-05-28] MEDS: Enoxaparin 30 MG/0.3 ML SYR SUBCUT SCH (19:40)
[2022-05-29] MEDS: D5W 1000 ml BAG 1,000 ML IV SCH (05:39)
[2022-05-29 08:42] LABS: ABS Eosinophils 0.1 10^3/ul (0-0.6); ABS Lymphocytes 1.8 10^3/ul (1.0-4.8); ABS Monocytes 0.6 10^3/ul (0-0.8); ABS Neutrophils 2.9 10^3/ul (1.5-7.7); Hematocrit 26 % (35-47); Hemoglobin 8.9 g/dL (12.0-16.0); Lymphocyte % 32.6 %; Mean Corpuscular HGB Conc 34 g/dL (31-36); Mean Corpuscular Hemoglobin 31 pg (27-31); Mean Corpuscular Volume 93 fL (80-97); Nucleated Red Blood Cells % 0.1; Platelet Count 158 10^3/uL (150-450); Red Blood Count 2.83 10^6 /uL (3.70-4.87); Red Cell Distribution Width 17 % (10-15); White Blood Count 5.4 10^3/uL (3.5-10.8)
[2022-05-29 09:04] LABS: Calcium 9.2 mg/dL (8.6-10.3); Potassium 3.6 mmol/L (3.5-5.0); eGFR CKD-EPI 52.1 (>60)
[2022-05-29] MEDS: cefTRIAXone 1 gm/50 mL D5W 1 GM/50 ML BAG IV SCH (22:31)
[2022-05-29] MEDS: Enoxaparin 30 MG/0.3 ML SYR SUBCUT SCH (22:38)
[2022-05-29] MEDS: Latanoprost 0.005% 2.5 ml BTL LEFT EYE SCH (22:39)
[2022-05-30 06:03] LABS: ABS Eosinophils 0.1 10^3/ul (0-0.6); ABS Lymphocytes 1.4 10^3/ul (1.0-4.8); ABS Monocytes 0.7 10^3/ul (0-0.8); ABS Neutrophils 4.5 10^3/ul (1.5-7.7); Eosinophil % 2.1 %; Hematocrit 27 % (35-47); Hemoglobin 9.3 g/dL (12.0-16.0); Lymphocyte % 20.6 %; Mean Corpuscular HGB Conc 34 g/dL (31-36); Mean Corpuscular Hemoglobin 32 pg (27-31); Mean Corpuscular Volume 92 fL (80-97); Mean Platelet Volume 8.1 fL (7.4-10.4); Nucleated Red Blood Cells % 0.1; Platelet Count 165 10^3/uL (150-450); Red Blood Count 2.95 10^6 /uL (3.70-4.87); Red Cell Distribution Width 16 % (10-15); White Blood Count 6.8 10^3/uL (3.5-10.8)
[2022-05-30 06:36] LABS: Calcium 9.3 mg/dL (8.6-10.3); Potassium 3.8 mmol/L (3.5-5.0)
[2022-05-30] MEDS: Polyethylene Glycol 3350 17 GM PACKET PO SCH (11:12)
[2022-05-30] MEDS: cefTRIAXone 1 gm/50 mL D5W 1 GM/50 ML BAG IV SCH (22:12)
[2022-05-30] MEDS: Enoxaparin 30 MG/0.3 ML SYR SUBCUT SCH (22:12)
[2022-05-30] MEDS: Latanoprost 0.005% 2.5 ml BTL LEFT EYE SCH (22:13)
[2022-05-31] MEDS ORDERED: Acetaminophen IV 1 GM/100ML 1,000 MG/100 ML BAG IV PRN (04:30)
[2022-05-31 06:31] LABS: ABS Eosinophils 0.1 10^3/ul (0-0.6); ABS Lymphocytes 0.8 10^3/ul (1.0-4.8); ABS Monocytes 0.9 10^3/ul (0-0.8); Eosinophil % 1.4 %; Hematocrit 30 % (35-47); Hemoglobin 10.1 g/dL (12.0-16.0); Lymphocyte % 10.5 %; Mean Corpuscular HGB Conc 34 g/dL (31-36); Mean Corpuscular Hemoglobin 31 pg (27-31); Mean Corpuscular Volume 93 fL (80-97); Platelet Count 165 10^3/uL (150-450); Red Blood Count 3.24 10^6 /uL (3.70-4.87); Red Cell Distribution Width 17 % (10-15); White Blood Count 7.8 10^3/uL (3.5-10.8)
[2022-05-31 06:39] LABS: Calcium 9.3 mg/dL (8.6-10.3); Potassium 3.6 mmol/L (3.5-5.0); eGFR CKD-EPI 63.5 (>60)
[2022-05-31] MEDS: Polyethylene Glycol 3350 17 GM PACKET PO SCH (09:41)
[2022-05-31] MEDS: cefTRIAXone 1 gm/50 mL D5W 1 GM/50 ML BAG IV SCH (20:38)
[2022-05-31] MEDS: Enoxaparin 30 MG/0.3 ML SYR SUBCUT SCH (20:38)
[2022-05-31] MEDS: Latanoprost 0.005% 2.5 ml BTL LEFT EYE SCH (21:30)
[2022-06-01 07:25] VITALS: BP 114/68
[2022-06-01] MEDS: Polyethylene Glycol 3350 17 GM PACKET PO SCH (09:53)
== END 2022-06-01 12:30 | DRG 690 ==
LOC: ED 09:18 → EDHOLD 14:32 → SUATTDRO 14:32 → EDHOLD 18:51 → MEDTELE 19:15 → MED 05-31 20:36
PROVIDERS: ADMIT Student in an Organized Health Care Education/Training Program; ATTEND Internal Medicine

== ENCOUNTER 2023-01-14 10:58 | Inpatient (IN) ==
[2023-01-14] MEDS ORDERED: NS 0.9% 500 ml BAG 500 ML IV ONE ×2 (13:04→18:09)
[2023-01-14 13:30] LABS: ABS Eosinophils 0.2 10^3/uL (0.0-0.5); ABS Lymphocytes 0.9 10^3/uL (1.0-4.8); ABS Monocytes 0.4 10^3/uL (0.0-0.9); ABS Neutrophils 4.1 10^3/uL (1.5-7.6); Hematocrit 24.2 % (35-45); Hemoglobin 8.2 g/dL (11.5-14.3); Lymphocyte % 15.7 %; Mean Corpuscular Hemoglobin 33.2 pg (27-33); Mean Corpuscular Hgb Conc 33.9 g/dL (31-36); Mean Corpuscular Volume 98.1 fL (80-97); Mean Platelet Volume 8.2 fL (7.5-11.2); Nucleated Red Blood Cells % 0.1 /100 WBC (0.0-0.4); Platelet Count 134 10^3/uL (150-450); Red Blood Count 2.47 10^6/uL (3.63-4.92); Red Cell Distribution Width 17.6 % (12-17); White Blood Count 5.7 10^3/uL (3.8-11.8)
[2023-01-14 13:42] LABS: Albumin 3.4 g/dL (3.2-5.2); Albumin/Globulin Ratio 1.1 (1-3); C Reactive Protein 19.56 mg/L (<8.01); Calcium 9.6 mg/dL (8.6-10.3); Creatinine, Serum 1.01 mg/dL (0.51-0.95); Potassium 4.7 mmol/L (3.5-5.0); Total Bilirubin 0.3 mg/dL (0.2-1.0); Total Protein 6.4 g/dL (6.4-8.9); eGFR CKD-EPI 54.6 (>60)
[2023-01-14 17:19] LABS: Urine Appearance Cloudy; Urine Bilirubin Negative (Negative); Urine Blood Negative (Negative); Urine Color Yellow; Urine Glucose Negative (Negative); Urine Ketones Negative (Negative); Urine Nitrite Positive (Negative); Urine Protein Negative (Negative); Urine Specific Gravity 1.009 (1.002-1.030); Urine Urobilinogen Negative (Negative)
[2023-01-14 17:23] LABS: Urine Bacteria 2+ (Absent); Urine Red Blood Cell 2+(6-10/hpf) (Absent); Urine Squamous Epithelial Cell Present (Absent); Urine White Blood Cell 3+(>20/hpf) (Absent)
[2023-01-14] MEDS ORDERED: cefTRIAXone 1 gm/50 mL D5W 1 GM/50 ML BAG IV ONE (18:09)
[2023-01-14] MEDS ORDERED: Heparin DRIP 25,000 UNITS BAG 25,000 UNITS/500 ML BAG IV SCH (20:15)
[2023-01-14] MEDS ORDERED: Heparin 5000 UNITS/ML 1 mL VIAL IV SCH (21:00)
[2023-01-14] MEDS ORDERED: Furosemide 20 mg/2 ml IV VIAL IV ONE (22:11)
[2023-01-14] MEDS ORDERED: Ondansetron 4 mg VIAL 2 MG/ML 2 ml VIAL IV PRN (22:18)
[2023-01-14 22:31] LABS: Hematocrit 27.8 % (35-45); Hemoglobin 9.1 g/dL (11.5-14.3); Mean Corpuscular Hemoglobin 32.8 pg (27-33); Mean Corpuscular Hgb Conc 32.9 g/dL (31-36); Mean Corpuscular Volume 99.8 fL (80-97); Mean Platelet Volume 8.2 fL (7.5-11.2); Platelet Count 133 10^3/uL (150-450); Red Blood Count 2.78 10^6/uL (3.63-4.92); Red Cell Distribution Width 17.7 % (12-17); White Blood Count 2.3 10^3/uL (3.8-11.8)
[2023-01-14 22:32] LABS: ABS Lymphocytes 0.4 10^3/uL (1.0-4.8); ABS Neutrophils 1.9 10^3/uL (1.5-7.6); ABS Nucleated RBC 0.04 10^3/ul; Lymphocyte % 16.5 %; Nucleated Red Blood Cells % 1.7 /100 WBC (0.0-0.4)
[2023-01-14 22:35] LABS: Albumin 3.5 g/dL (3.2-5.2); Albumin/Globulin Ratio 1.1 (1-3); C Reactive Protein 23.97 mg/L (<8.01); Calcium 9.6 mg/dL (8.6-10.3); Creatinine, Serum 0.94 mg/dL (0.51-0.95); Globulin 3.2 g/dL (2-4); Magnesium 1.5 mg/dL (1.9-2.7); Potassium 4.7 mmol/L (3.5-5.0); Total Bilirubin 0.3 mg/dL (0.2-1.0); Total Protein 6.7 g/dL (6.4-8.9); eGFR CKD-EPI 59.5 (>60)
[2023-01-14] MEDS ORDERED: Calcium Carb (TUMS) 500 mg CHEW TAB PO PRN (22:50)
[2023-01-14] MEDS ORDERED: Polyethylene Glycol 3350 17 GM PACKET PO PRN (22:50)
[2023-01-14] MEDS: Latanoprost 0.005% 2.5 ml BTL LEFT EYE SCH (23:15)
[2023-01-14] MEDS: Enoxaparin 40 MG/0.4 ML SYR SUBCUT SCH (23:15)
[2023-01-15 00:06] LABS: High Sensitivity Troponin 1 Hr 11 pg/mL (<15)
[2023-01-15] MEDS ORDERED: Iodixanol (CONTRAST) 320 MG/ML 100 ML SDV IV ONE (02:07)
[2023-01-15] MEDS: cefTRIAXone 1 gm/50 mL D5W 1 GM/50 ML BAG IV SCH (08:41)
[2023-01-15 11:20] LABS: ABS Lymphocytes 0.1 10^3/uL (1.0-4.8); ABS Monocytes 0.3 10^3/uL (0.0-0.9); ABS Nucleated RBC 0.01 10^3/ul; Eosinophil % 0.2 %; Hematocrit 24.2 % (35-45); Hemoglobin 8.2 g/dL (11.5-14.3); Lymphocyte % 0.7 %; Mean Corpuscular Hemoglobin 33.3 pg (27-33); Mean Corpuscular Volume 98.1 fL (80-97); Mean Platelet Volume 8.3 fL (7.5-11.2); Nucleated Red Blood Cells % 0.1 /100 WBC (0.0-0.4); Platelet Count 123 10^3/uL (150-450); Red Blood Count 2.47 10^6/uL (3.63-4.92); Red Cell Distribution Width 17.8 % (12-17); White Blood Count 10.4 10^3/uL (3.8-11.8)
[2023-01-15 11:30] LABS: Creatinine, Serum 1.02 mg/dL (0.51-0.95); Magnesium 1.3 mg/dL (1.9-2.7); Potassium 4.6 mmol/L (3.5-5.0); eGFR CKD-EPI 53.9 (>60)
[2023-01-15] MEDS ORDERED: Lactated Ringers 1000 ml BAG 1,000 ML IV SCH ×2 (13:00→17:03)
[2023-01-15] MEDS: Latanoprost 0.005% 2.5 ml BTL LEFT EYE SCH (22:14)
[2023-01-15] MEDS: Enoxaparin 40 MG/0.4 ML SYR SUBCUT SCH (23:49)
[2023-01-16 06:13] LABS: ABS Basophils 0.1 10^3/uL (0.0-0.1); ABS Eosinophils 0.5 10^3/uL (0.0-0.5); ABS Lymphocytes 0.4 10^3/uL (1.0-4.8); ABS Monocytes 0.9 10^3/uL (0.0-0.9); ABS Neutrophils 7.8 10^3/uL (1.5-7.6); ABS Nucleated RBC 0.02 10^3/ul; Eosinophil % 5.4 %; Hemoglobin 7.3 g/dL (11.5-14.3); Lymphocyte % 4.4 %; Mean Corpuscular Hemoglobin 33.4 pg (27-33); Mean Corpuscular Hgb Conc 33.3 g/dL (31-36); Mean Corpuscular Volume 100.5 fL (80-97); Mean Platelet Volume 8.7 fL (7.5-11.2); Nucleated Red Blood Cells % 0.2 /100 WBC (0.0-0.4); Platelet Count 104 10^3/uL (150-450); Red Blood Count 2.19 10^6/uL (3.63-4.92); Red Cell Distribution Width 17.8 % (12-17); White Blood Count 9.7 10^3/uL (3.8-11.8)
[2023-01-16 06:21] LABS: Calcium 8.9 mg/dL (8.6-10.3); Magnesium 1.6 mg/dL (1.9-2.7); Potassium 4.9 mmol/L (3.5-5.0)
[2023-01-16 06:27] LABS: Creatinine, Serum 1.2 mg/dL (0.51-0.95); eGFR CKD-EPI 44.4 (>60)
[2023-01-16] MEDS: cefTRIAXone 1 gm/50 mL D5W 1 GM/50 ML BAG IV SCH (08:29)
[2023-01-16] MEDS: Lactated Ringers 1000 ml BAG 1,000 ML IV SCH (12:29)
[2023-01-16] MEDS ORDERED: Magnesium Sulfate IV 3 GM in NS 0.9% 100 ml BAG 100 ML IVPB ONE (12:35)
[2023-01-16] MEDS ORDERED: Acetaminophen IV 1 GM/100ML 1,000 MG/100 ML BAG IV ONE (13:00)
[2023-01-16] MEDS: Latanoprost 0.005% 2.5 ml BTL LEFT EYE SCH (21:33)
[2023-01-16] MEDS: Enoxaparin 30 MG/0.3 ML SYR SUBCUT SCH (22:50)
[2023-01-17] MEDS: Lactated Ringers 1000 ml BAG 1,000 ML IV SCH (05:13)
[2023-01-17 05:59] LABS: ABS Eosinophils 0.5 10^3/uL (0.0-0.5); ABS Lymphocytes 0.8 10^3/uL (1.0-4.8); ABS Monocytes 0.2 10^3/uL (0.0-0.9); ABS Neutrophils 5.8 10^3/uL (1.5-7.6); ABS Nucleated RBC 0.01 10^3/ul; Eosinophil % 7.2 %; Hematocrit 25.4 % (35-45); Hemoglobin 8.5 g/dL (11.5-14.3); Lymphocyte % 11.1 %; Mean Corpuscular Hemoglobin 33.5 pg (27-33); Mean Corpuscular Hgb Conc 33.4 g/dL (31-36); Mean Corpuscular Volume 100.4 fL (80-97); Mean Platelet Volume 8.8 fL (7.5-11.2); Nucleated Red Blood Cells % 0.2 /100 WBC (0.0-0.4); Platelet Count 129 10^3/uL (150-450); Red Blood Count 2.53 10^6/uL (3.63-4.92); Red Cell Distribution Width 17.7 % (12-17); White Blood Count 7.4 10^3/uL (3.8-11.8)
[2023-01-17 06:12] LABS: Calcium 9.2 mg/dL (8.6-10.3); Creatinine, Serum 1.17 mg/dL (0.51-0.95); Magnesium 2.4 mg/dL (1.9-2.7); Potassium 4.2 mmol/L (3.5-5.0); eGFR CKD-EPI 45.7 (>60)
[2023-01-17] MEDS: cefTRIAXone 1 gm/50 mL D5W 1 GM/50 ML BAG IV SCH (09:41)
[2023-01-17] MEDS ORDERED: Furosemide 20 mg/2 ml IV VIAL IV ONE (11:25)
[2023-01-17] MEDS ORDERED: Albuterol/Ipratropium NEB.SOL (2.5/0.5 MG) 3 ML NEB.SOLN INH ONE (13:25)
[2023-01-17] MEDS: Acetaminophen IV 1 GM/100ML 1,000 MG/100 ML BAG IV PRN (20:32)
[2023-01-17] MEDS: Latanoprost 0.005% 2.5 ml BTL LEFT EYE SCH (20:32)
[2023-01-17] MEDS: Enoxaparin 30 MG/0.3 ML SYR SUBCUT SCH (22:34)
[2023-01-18 06:00] LABS: ABS Eosinophils 0.4 10^3/uL (0.0-0.5); ABS Lymphocytes 1.1 10^3/uL (1.0-4.8); ABS Monocytes 0.5 10^3/uL (0.0-0.9); ABS Neutrophils 6.4 10^3/uL (1.5-7.6); ABS Nucleated RBC 0.01 10^3/ul; Eosinophil % 4.5 %; Hematocrit 24.2 % (35-45); Hemoglobin 8.2 g/dL (11.5-14.3); Lymphocyte % 12.7 %; Mean Corpuscular Hemoglobin 33.6 pg (27-33); Mean Corpuscular Hgb Conc 34.1 g/dL (31-36); Mean Corpuscular Volume 98.6 fL (80-97); Mean Platelet Volume 8.3 fL (7.5-11.2); Nucleated Red Blood Cells % 0.1 /100 WBC (0.0-0.4); Platelet Count 116 10^3/uL (150-450); Red Blood Count 2.45 10^6/uL (3.63-4.92); Red Cell Distribution Width 17.2 % (12-17); White Blood Count 8.4 10^3/uL (3.8-11.8)
[2023-01-18 06:19] LABS: Calcium 9.1 mg/dL (8.6-10.3); Creatinine, Serum 1.25 mg/dL (0.51-0.95); Magnesium 2.1 mg/dL (1.9-2.7); Potassium 3.8 mmol/L (3.5-5.0); eGFR CKD-EPI 42.2 (>60)
[2023-01-18 10:23] VITALS: BP 148/84
[2023-01-18] MEDS: cefTRIAXone 1 gm/50 mL D5W 1 GM/50 ML BAG IV SCH (12:03)
[2023-01-18] MEDS: Acetaminophen IV 1 GM/100ML 1,000 MG/100 ML BAG IV PRN (13:42)
[2023-01-18] MEDS ORDERED: Ondansetron 4 mg VIAL 2 MG/ML 2 ml VIAL IV PRN (13:51)
[2023-01-18] MEDS ORDERED: Senna TAB 8.6 mg TAB PO PRN (13:51)
[2023-01-18] MEDS: Morphine ORAL CONCENTRATE 5 MG/0.25 ML ORAL.SYRIN SL SCH ×3 (14:52→19:55)
[2023-01-18] MEDS ORDERED: D5W 1000 ml BAG 1,000 ML IV SCH (17:00)
[2023-01-18] MEDS: Morphine ORAL CONCENTRATE 5 MG/0.25 ML ORAL.SYRIN SL PRN (18:31)
[2023-01-18] MEDS: Latanoprost 0.005% 2.5 ml BTL LEFT EYE SCH (22:24)
[2023-01-18] MEDS: Enoxaparin 30 MG/0.3 ML SYR SUBCUT SCH (22:24)
[2023-01-19] MEDS: Morphine ORAL CONCENTRATE 5 MG/0.25 ML ORAL.SYRIN SL SCH ×5 (02:55→23:03)
[2023-01-19] MEDS: cefTRIAXone 1 gm/50 mL D5W 1 GM/50 ML BAG IV SCH (11:12)
[2023-01-19] MEDS: Morphine ORAL CONCENTRATE 5 MG/0.25 ML ORAL.SYRIN SL PRN ×2 (12:16→20:33)
[2023-01-19] MEDS: Latanoprost 0.005% 2.5 ml BTL LEFT EYE SCH (20:57)
[2023-01-20] MEDS: Morphine ORAL CONCENTRATE 5 MG/0.25 ML ORAL.SYRIN SL PRN ×4 (01:49→15:49)
[2023-01-20] MEDS: Morphine ORAL CONCENTRATE 5 MG/0.25 ML ORAL.SYRIN SL SCH ×3 (05:42→17:41)
== END 2023-01-20 19:37 | disposition expired | DRG 871 ==
LOC: ED 10:58 → MED 21:05 → SUATTDRO 22:18 → INTOOBSV 22:18 → EDHOLD 22:18 → MED 01-15 12:46
PROVIDERS: ADMIT Internal Medicine; ATTEND Internal Medicine